=== PATIENT | female | born 1930 | race Caucasian/White ===

== ENCOUNTER → 2016-09-02 | Outpatient (CLI) | payer MEDICARE ==
[~2016-09-02] VITALS: Ht 170.2 cm; Wt 84.4 kg
[~2016-09-02] MED LIST: ASPI81TA85 PO; CALC600T10 PO; CALCTAB89 PO; FECAL MICROBIOTA PREPARATION 250 ML BTL (J3590) XX ONE; FURO40TA2 PO; GABA600T PO; LIDOCAINE 2% INJ 100 MG/5 ML SDV (FOR ANES.) As Ordered ONE; LOMOTIL 2.5MG/0.025MG TABLET PO ONE; MULT1TAB10 PO; NS 1,000 ML IV SCH; POTA20TA PO; PROA1AER INH; PROBCAP4 PO; PROPOFOL 200 MG/20 ML VIAL As Ordered ONE; SIMV40TA2 PO; TRAM50TA2 PO; VITA200016 PO
--- NOTE | 2016-09-02 13:52 | ROOR ---
Patient Name: Rupinder Vaca Procedure Date: 09/02/2016 1:21 PM Date of : 1930 Age: 86 Room: [facility] Gender: Female Note Status: Finalized Procedure: Colonoscopy Indications: Chronic diarrhea, Colitis, presumed infectious Providers: George Sanchez Jr, MD Referring MD: Galilea Barnes DO Requesting Provider: Medicines: Propofol per Anesthesia Complications: No immediate complications. Procedure: Pre-Anesthesia Assessment: - Prior to the procedure, a History and Physical was performed, and patient medications and allergies were reviewed. The patient is competent. The risks and benefits of the procedure and the sedation options and risks were discussed with the patient. All questions were answered and informed consent was obtained. Patient identification and proposed procedure were verified by the physician and the nurse in the pre-procedure area and in the procedure room. Mental Status Examination: alert and oriented. Airway Examination: normal oropharyngeal airway and neck mobility. Respiratory Examination: clear to auscultation. CV Examination: normal. ASA Grade Assessment: II - A patient with mild systemic disease. After reviewing the risks and benefits, the patient was deemed in satisfactory condition to undergo the procedure. The anesthesia plan was to use moderate sedation / analgesia (conscious sedation). Immediately prior to administration of medications, the patient was re-assessed for adequacy to receive sedatives. The heart rate, respiratory rate, oxygen saturations, blood pressure, adequacy of pulmonary ventilation, and response to care were monitored throughout the procedure. The physical status of the patient was re-assessed after the procedure. The Colonoscope was introduced through the anus and advanced to the cecum, identified by appendiceal orifice and ileocecal valve. The colonoscopy was performed without difficulty. The patient tolerated the procedure well. The quality of the bowel preparation was adequate and good. Findings: The perianal exam findings include non-thrombosed internal hemorrhoids, internal hemorrhoids that prolapse with straining, but spontaneously regress to the resting position (Grade II) and internal hemorrhoids that prolapse with straining, but require manual replacement into the anal canal (Grade III). Multiple small and large-mouthed diverticula were found in the sigmoid colon. Diffuse severe inflammation characterized by congestion (edema), erosions, erythema, friability, mucus and pseudopolyps was found in the ascending colon. Biopsies were taken with a cold forceps for histology. A medium polyp was found in the hepatic flexure. The polyp was sessile. Biopsies were taken with a cold forceps for histology. Impression: - Non-thrombosed internal hemorrhoids, internal hemorrhoids that prolapse with straining, but spontaneously regress to the resting position (Grade II) and internal hemorrhoids that prolapse with straining, but require manual replacement into the anal canal (Grade III) found on perianal exam. - Diverticulosis in the sigmoid colon. - Diffuse severe inflammation was found in the ascending colon secondary to pseudomembranous colitis. Biopsied. - One medium polyp at the hepatic flexure. Biopsied. Recommendation: - Discharge patient to home (ambulatory). - Return to my office in 2 weeks. George Sanchez MD George Sanchez Jr, MD 09/02/2016 1:51:52 PM This report has been signed electronically. Number of Addenda: 0 Note Initiated On: 09/02/2016 1:21 PM Estimated Blood Loss: Estimated blood loss: none.
[2016-09-02 14:53] VITALS: BP 131/67
== END ==
LOC: M OPP 12:16
PROVIDERS: ATTEND Surgery
DX: K52.9 Noninfective gastroenteritis and colitis, unspecified (principal); A04.7 Enterocolitis due to Clostridium difficile; C18.9 Malignant neoplasm of colon, unspecified; K64.2 Third degree hemorrhoids; K57.30 Diverticulosis of large intestine without perforation or abscess without bleeding; D12.3 Benign neoplasm of transverse colon; Z96.651 Presence of right artificial knee joint; I10 Essential (primary) hypertension; J98.4 Other disorders of lung; Z79.82 Long term (current) use of aspirin; Z79.899 Other long term (current) drug therapy

== ENCOUNTER → 2016-09-20 | Outpatient (CLI) | payer MEDICARE ==
[~2016-09-20] MED LIST changes: -FECAL MICROBIOTA PREPARATION 250 ML BTL (J3590) XX ONE; -LIDOCAINE 2% INJ 100 MG/5 ML SDV (FOR ANES.) As Ordered ONE; -LOMOTIL 2.5MG/0.025MG TABLET PO ONE; -NS 1,000 ML IV SCH; -PROPOFOL 200 MG/20 ML VIAL As Ordered ONE
[2016-09-20 14:01] LABS: MEAN CORPUSCULAR HEMOGLOBIN 20.5 pg (27.0-33.0); MEAN CORPUSCULAR HGB CONC 29.1 g/dl (32.0-36.5); MEAN CORPUSCULAR VOLUME 70.3 fl (80.0-96.0); RED CELL DISTRIBUTION WIDTH 16.6 % (11.5-14.5); WHITE BLOOD COUNT 8.8 K/mm3 (4.0-10.0)
== END ==
LOC: M LAB 12:17
PROVIDERS: ATTEND Surgery
DX: C18.9 Malignant neoplasm of colon, unspecified (principal)

== ENCOUNTER → 2016-09-22 | Outpatient (CLI) | payer MEDICARE ==
[~2016-09-22] MED LIST changes: +GASTROGRAFIN SOLUTION 30ML (Q9963) As Ordered ONE; +ISOVUE-370 76% 100ML VIAL (Q9967) As Ordered ONE
--- NOTE | 2016-09-22 14:56 | REP ---
Clinical: Neoplasm of the ascending colon. Technique: Axial contrast enhanced images from the lung bases to the pubic symphysis using oral and 100 ml Isovue 370 intravenous contrast material with coronal and sagittal re-formations. Comparison: 07/17/2015. Findings: Irregular heterogeneous asymmetric but circumferential thickening of the cecum/proximal ascending colon is appreciated with surrounding fat stranding and adenopathy compatible with given history of malignancy. The distal/terminal ileum and appendix appear relatively normal. The remainder of the small and large bowel is grossly unremarkable. Liver, pancreas, bilateral adrenal glands and left kidney appear normal. Right kidney demonstrates hypodensities compatible with cysts measuring up to 3 cm. The spleen demonstrates hypodensity up to 2.4 cm which are otherwise nonspecific and may represent hemangioma/lymphangioma and appear to be increased when compared to 2014. Gallbladder demonstrates minimal layering sludge without evidence for acute cholecystitis. A rim calcified structure in the left upper quadrant may represent a thrombosed splenic artery aneurysm, but in any event appears stable and chronic/benign. Small hiatal hernia noted at the gastroesophageal junction. No pelvic fluid or ascites. Pelvis demonstrates normal bladder and age-appropriate uterus/adnexa. Sigmoid diverticulosis noted without acute diverticulitis. Musculoskeletal structures demonstrate age-related changes without focal osseous abnormality. The lung bases demonstrate chronic changes without acute consolidation, nodule or mass. Impression: 1. Large heterogeneous asymmetric circumferential mass lesion involving the cecum and ascending colon measuring greater than 8.4 cm maximal diameter with surrounding inflammatory changes and adenopathy consistent with malignancy. 2. Colonic diverticulosis. 3. Right renal simple cysts. 4. Splenic hypodensity increased from prior examination may reflect hemangioma/lymphangioma versus splenic cyst. 5. Cholelithiasis without CT evidence for acute cholecystitis. Signed by El Garcia MD 09/22/2016 02:48 P
== END ==
LOC: M RAD 12:22
PROVIDERS: ATTEND Surgery
DX: C18.2 Malignant neoplasm of ascending colon (principal); K57.30 Diverticulosis of large intestine without perforation or abscess without bleeding; N28.1 Cyst of kidney, acquired; K80.20 Calculus of gallbladder without cholecystitis without obstruction
CPT/HCPCS: 74178; Q9963; Q9967

== ENCOUNTER → 2016-10-07 | Outpatient (CLI) | payer MEDICARE, OTHER ==
[~2016-10-07] MED LIST changes: -GASTROGRAFIN SOLUTION 30ML (Q9963) As Ordered ONE; -ISOVUE-370 76% 100ML VIAL (Q9967) As Ordered ONE
[2016-10-07 12:33] LABS: BASO % 0.3 % (0.0-1.0); EOS # 0.1 K/mm3 (0.0-0.50); LYMPH # 1.3 K/mm3 (1.5-4.5); LYMPH % 15.2 % (24.0-44.0); MEAN CORPUSCULAR HEMOGLOBIN 19.5 pg (27.0-33.0); MEAN CORPUSCULAR HGB CONC 28.4 g/dl (32.0-36.5); MEAN CORPUSCULAR VOLUME 68.8 fl (80.0-96.0); MONO # 0.4 K/mm3 (0.0-0.8); MONO % 4.7 % (0.0-5.0); NEUTROPHILS # 6.6 K/mm3 (1.8-7.7); NEUTROPHILS % 75.8 % (36.0-66.0); RED CELL DISTRIBUTION WIDTH 17.1 % (11.5-14.5); WHITE BLOOD COUNT 8.7 K/mm3 (4.0-10.0)
[2016-10-07 12:38] LABS: ANION GAP 7 MEQ/L (8-16); BLOOD UREA NITROGEN 13 MG/DL (7-18); CALCIUM LEVEL 8.4 MG/DL (8.8-10.2); CARBON DIOXIDE LEVEL 31 MEQ/L (21-32); CHLORIDE LEVEL 105 MEQ/L (98-107); GLOMERULAR FILTRATION RATE > 60.0 (>32); GLUCOSE, FASTING 93 MG/DL (83-110); POTASSIUM SERUM 3.9 MEQ/L (3.5-5.1); SODIUM LEVEL 143 MEQ/L (136-145)
--- NOTE | 2016-10-07 13:18 | REP ---
CHEST X-RAY: TWO VIEWS. HISTORY: Dorsalgia. COMPARISON STUDY: July 18, 2015. FINDINGS: The lungs are slightly hyperinflated but clear. Heart is not felt to be enlarged. The aorta is calcific and somewhat tortuous. There is a dextroconvex curvature in the thoracic spine. These findings are unchanged. Pleural angles are sharp. Pulmonary vasculature is not increased. No other significant bony abnormality is seen. IMPRESSION: Mild hyperinflation. Otherwise no acute disease. Dextroconvex curvature in the thoracic spine again noted. Signed by Trace Metz MD 10/07/2016 01:32 P
--- NOTE | 2016-10-07 13:18 | ECGEPIP ---
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 Molly NORTH Order Number: [id number] Reading MD: Eh Lenz Measurements Intervals [place] Rate: 75 P: 37 NC: 151 QRS: -62 QRSD: 145 T: 18 QT: 420 QTc: 472 Interpretive Statements SINUS RHYTHM Low voltage in limb leads RIGHT BUNDLE BRANCH BLOCK LEFT ANTERIOR FASCICULAR BLOCK Delayed anterior R wave progression Nonspecific T wave abnormality Baseline artifact Comparison tracing not on file Electronically Signed On 10-07-2016 13:08:10 EST by Eh Lenz
== END ==
LOC: M LAB 11:37
PROVIDERS: ATTEND Family Medicine
DX: M54.9 Dorsalgia, unspecified (principal)

== ENCOUNTER 2016-10-12 08:01 | Inpatient (IN) | payer MEDICARE, OTHER ==
--- NOTE | 2016-10-11 21:55 | HPE ---
DATE OF SCHEDULED ADMISSION: 10/12/2016 BRIEF HISTORY OF PRESENT ILLNESS: The patient is an 86-year-old female who presents with a CT scan which showed abnormality in the right colon, and she had some evidence of Clostridium difficile (C difficile) colitis a year ago and was treated for the C difficile colitis. The CT scan did not show evidence of malignancy at that time. However, since that time, she has had ongoing intermittent episodes of C difficile colitis and presented for stool transplant. At the time of her stool transplant, she had some ulcerated lesion abnormality in the ascending colon/near the cecum, and this was biopsied, revealed adenocarcinoma. A CT scan was performed once again as dictated and did not show any evidence of metastatic disease. She has had some left-sided abdominal pain but not specifically right-sided abdominal pain, has had some anemia. She is not having any bright red blood per rectum. Her past medical history is significant for a history of hypertension, hypercholesterolemia, history of gastroesophageal reflux, history of colitis, history of arthritis, history of anxiety, history of depression, history of chronic obstructive pulmonary disease (COPD), history of C difficile infections, history of knee replacement. Medications include aspirin, calcium, Lasix, gabapentin, multivitamins, ProAir, probiotics, simvastatin, tramadol and vitamin D. PHYSICAL EXAM: Reveals an 86-year-old female who looks stated age. HEENT is unremarkable. Neck: Supple without adenopathy. Lungs are clear to auscultation without crackles, wheezes or rhonchi. Heart is regular. Abdomen is soft, nondistended. I do feel there is a fullness in the right side of the abdomen, and I do feel that this is probably the malignancy. She does have a small periumbilical hernia, and I anticipate when we perform her laparoscopic approach that will use this hernia site. No other masses or lesions are appreciated on her exam. No other tenderness. No guarding, no rebound. IMPRESSION AND PLAN: The patient has evidence of a malignant neoplasm of the ascending colon. Will plan on a laparoscopic right colectomy. The lesion itself is relatively large, and I anticipate this will probably need to have a relatively moderate-sized periumbilical incision, and I am not sure if this will be able to be mobilized adequately laparoscopically, but this will be that plan. She understands that we will make her nothing by mouth, IV fluids, IV antibiotics, as well as mechanical, as well as antibiotic bowel prep. She will get thromboembolism deterrents (TEDS), sequential, Joseph catheter intraoperatively and we have discussed the operative intervention and its risks as well as benefits associated with the operation, including but not limited to infection, bleeding, damage to surrounding structures, including liver, pancreas, duodenum, kidney, ureter, bladder, bowel and possible need for open operative intervention as well as possible need for ostomy. She understands and would like to proceed with this as soon as possible. Second issue is anemia. The patient has had some ongoing anemia. Will type and cross her at the time of her operation and plan on transfusing her intraoperatively as per recommendations from her primary care.
[~2016-10-12] VITALS: Ht 170.2 cm; Wt 83.0 kg
[2016-10-12] MEDS ORDERED: LR 1,000 ML IV SCH ×3 (08:15→16:15)
[2016-10-12] MEDS: PANTOPRAZOLE 40MG INJ (PROTONIX) (C9113) IV SCH (09:00)
[2016-10-12] MEDS ORDERED: ERTAPENEM SODIUM 1 GM in NS MINI-BAG PLUS 50 ML IV ONE (09:00)
[2016-10-12] MEDS ORDERED: GLUCAGON FOR INJ 1 MG VIAL (J1610) As Ordered ONE (10:45)
[2016-10-12] MEDS ORDERED: BUPIVACAINE/EPIN 0.25% 30 ML VIAL As Ordered ONE (10:45)
[2016-10-12] MEDS ORDERED: MIDAZOLAM INJ 2 MG/2 ML VIAL (J2250) As Ordered ONE (11:18)
[2016-10-12] MEDS ORDERED: PROPOFOL 200 MG/20 ML VIAL As Ordered ONE (13:17)
[2016-10-12] MEDS ORDERED: fentaNYL 250 MCG/5 ML INJECTION (J3010) As Ordered ONE (13:17)
[2016-10-12] MEDS ORDERED: ONDANSETRON 4MG/2ML VIAL (J2405) As Ordered ONE (13:17)
[2016-10-12] MEDS ORDERED: LIDOCAINE 2% INJ 100 MG/5 ML SDV (FOR ANES.) As Ordered ONE (13:17)
[2016-10-12] MEDS ORDERED: ROCURONIUM BROMIDE 50 MG/5 ML VIAL As Ordered ONE (13:17)
[2016-10-12] MEDS ORDERED: LABETALOL HCL 100 MG/20 ML VIAL As Ordered ONE (13:39)
[2016-10-12] MEDS ORDERED: HYDROmorphone HCL 2 MG/ML 1ML VIAL (J1170) As Ordered ONE (14:11)
[2016-10-12] MEDS ORDERED: NEOSTIGMINE 1MG/ML 5 ML SYRINGE (J2710) As Ordered ONE (14:37)
[2016-10-12] MEDS ORDERED: GLYCOPYRROLATE INJ 0.2 MG/ML 2 ML VIAL As Ordered ONE (14:37)
[2016-10-12] MEDS ORDERED: NS 1,000 ML IV SCH ×2 (15:12→23:00)
[2016-10-12] MEDS ORDERED: NALOXONE INJ 0.4 MG/1 ML VIAL (J2310) IV PRN (15:15)
[2016-10-12] MEDS ORDERED: MORPHINE PCA 1MG/ML 100ML CADD IV PRN (15:15)
[2016-10-12] MEDS ORDERED: zolPIDEM TARTRATE 10MG TAB PO PRN (15:15)
[2016-10-12] MEDS ORDERED: diphenhydrAMINE INJ 50MG/ML VIAL (J1200) IV PRN (15:15)
[2016-10-12] MEDS ORDERED: MORPHINE PCA 1MG/ML 100ML CADD As Ordered ONE (15:15)
[2016-10-12] MEDS ORDERED: IPRATROPIUM 0.5MG/ALBUTEROL 2.5MG INH SOL UD 3ML (DUONEB)(J7620) NEB PRN (15:15)
[2016-10-12] MEDS ORDERED: ONDANSETRON 4MG/2ML VIAL (J2405) IV PRN ×3 (15:15→16:15)
[2016-10-12] MEDS ORDERED: NALBUPHINE HCL 10 MG/ML AMP (J2300) IV PRN (15:15)
[2016-10-12] MEDS ORDERED: EPIDURAL/PCA KEYS XX PRN (15:15)
[2016-10-12] MEDS: HYDROmorphone HCL 1 MG/ML SYRINGE (J1170) IV PRN ×4 (15:45→16:15)
[2016-10-12] MEDS ORDERED: HYDROmorphone HCL 1 MG/ML SYRINGE (J1170) As Ordered ONE (15:45)
[2016-10-12] MEDS ORDERED: PERCOCET 5MG/325MG TAB PO PRN (16:15)
[2016-10-12] MEDS ORDERED: fentaNYL 100 MCG/2 ML INJECTION (J3010) IV PRN (16:15)
[2016-10-12 16:35] LABS: ANION GAP 8 MEQ/L (8-16); BLOOD UREA NITROGEN 12 MG/DL (7-18); CALCIUM LEVEL 7.4 MG/DL (8.8-10.2); CARBON DIOXIDE LEVEL 28 MEQ/L (21-32); CHLORIDE LEVEL 105 MEQ/L (98-107); CREATININE FOR GFR 0.62 MG/DL (0.55-1.02); GLOMERULAR FILTRATION RATE > 60.0 (>32); GLUCOSE, FASTING 134 MG/DL (83-110); POTASSIUM SERUM 3.5 MEQ/L (3.5-5.1); SODIUM LEVEL 141 MEQ/L (136-145)
[2016-10-12 17:30] VITALS: BP 131/65
[2016-10-12 18:00] VITALS: BP 145/74
[2016-10-12] MEDS: LACTOBACILLUS ACIDOPHILUS CAP (BACID) PO SCH ×2 (18:10→19:59)
[2016-10-12] MEDS: GABAPENTIN 300 MG CAP PO SCH ×2 (18:11→20:00)
[2016-10-12 18:30] VITALS: BP 154/77
--- NOTE | 2016-10-12 19:41 | REP ---
CHEST, SINGLE VIEW: COMPARISON: 10/07/2016 There is no evidence of acute infiltrate. No pleural effusion is seen. The heart is normal in size. The mediastinal silhouette is unremarkable. The visualized osseous structures are intact. IMPRESSION: No acute pulmonary disease. Signed by Francisco Casanova MD 10/12/2016 08:13 P
--- NOTE | 2016-10-12 19:58 | CR ---
DATE OF CONSULTATION: 10/13/2015 TIME PATIENT SEEN: 1830 CONSULTING PHYSICIAN: Dr. Sanchez INTERIOR HORTICULTURIST: Dr. Mile Lopez REASON FOR CONSULTATION: Medical management. CHIEF COMPLAINT: Colon cancer. HISTORY OF PRESENT ILLNESS: An 86-year-old female with a past medical history of colon cancer, status post laparoscopic right colectomy with Dr. Sanchez earlier today. Also history of hypertension, gastroesophageal reflux disease (GERD), arthritis, anxiety, depression, chronic obstructive pulmonary disease (COPD), presented to the hospital for elective surgery with Dr. Sanchez, and we have been consulted for medical management. At the time of interview, patient's daughter and son-in-law were in the room. Provided some of the history. Patient, herself, however, was slightly confused due to coming out from the surgery. Patient's daughter stated that Dr. Sanchez stated the surgery went well. Patient denies any discomfort besides a back pain, which, per patient's family, has been chronic for her. She also has mild abdominal pain from the surgery. Otherwise, she denies any chest pain, trouble breathing, any abdominal pains, nausea, vomiting, diarrhea, or constipation. Patient is on a Joseph currently. Patient denies any flatus currently. Patient is on Lasix at home, which was a concern due to that she received 2 units of packed red blood cells (PRBC) in operating room (OR); however, patient's family denied that patient has had any heart failure. She does see Dr. Vega, cardiology, outpatient. We will obtain her history from Dr. Vega from the office, likely next day morning. In the meantime, we will monitor her closely. ALLERGIES: Patient is allergic to CEFEPIME, which gives her hives. HOME MEDICATIONS: Include: - ProAir 108 mcg inhalation four times a day as needed - aspirin 81 mg one tablet by mouth daily - calcium 1200 mg one tablet by mouth daily - furosemide 40 mg one tablet by mouth daily - gabapentin 600 mg one tablet by mouth four times a day - probiotic one tablet by mouth daily - multivitamin two tablets by mouth daily - potassium chloride 10 mEq by mouth daily - simvastatin 20 mg one tablet by mouth daily - tramadol 50 mg one tablet by mouth every 6 hours - vitamin D 2000 units one tablet by mouth daily PAST MEDICAL HISTORY: 1. Hypertension. 2. Gastroesophageal reflux disease (GERD). 3. Colitis. 4. Arthritis. 5. Anxiety/depression. 6. Chronic obstructive pulmonary disease (COPD). 7. Osteoporosis. 8. Degenerative joint disease. 9. Echocardiogram in [address] Vega shows left ventricular ejection fraction of 65-70%, questionable diastolic due to patient is on Lasix, pending history from Dr. Vega's office. PAST SURGICAL HISTORY: Right total knee replacement. SOCIAL HISTORY: Patient quit smoking 10 years ago. Used to smoke half pack per day for over 5 years. Denies any drinking or recreational drug use. Patient is retired and . FAMILY HISTORY: Significant for congestive heart failure (CHF), asthma, coronary artery disease, cerebrovascular accident (CVA), lung cancer, breast cancer, cirrhosis. REVIEW OF SYSTEMS: CONSTITUTIONAL: Denies any fevers or chills, any night sweats. HEENT: Denies any changes with vision, smell, hearing, taste. CARDIOVASCULAR: Denies any chest pain, trouble breathing. PULMONARY: Denies any trouble breathing. ABDOMEN: Admits to colon cancer. Denies any nausea, vomiting, diarrhea, or constipation. Patient has not passed any flatus since surgery today. GENITOURINARY: Patient has Joseph catheter. Denies any discomfort currently. MUSCULOSKELETAL: Patient does have chronic back pain. ENDOCRINE: Denies any heat or cold intolerance. HEMATOLOGY/ONCOLOGY: Patient does have colon cancer status post resection. NEUROLOGIC: Denies any weakness on any side of her body. Denies any change in sensation. PSYCHIATRIC: Patient does have a history of anxiety/depression; however, it was remote per family, and they deny patient has any problem currently. PHYSICAL EXAMINATION: VITAL SIGNS: Temperature 95.5, pulse 77, respirations 18, blood pressure 131/65, oxygen was saturating at 96% on 2 liters of nasal cannula. GENERAL: Patient is a pleasant, elderly female who was alert, awake, oriented times three. Does not appear to be in distress, resting comfortably in bed with head elevated at 30 degrees. HEENT: Normocephalic, atraumatic. Extraocular motor intact. Mucosa moist. NECK: Supple. No neck lymphadenopathy. CARDIOVASCULAR: Regular rate and rhythm. Normal S1, S2; however, there was a 3/6 systolic heart murmur, especially at right 2nd intercostal space. LUNGS: Slight rales, more prominent on the left side. ABDOMEN: Slightly tender to palpation near the surgical site; otherwise, incision was dry, clean, and intact. SKIN: Warm and dry. NEUROLOGIC: Cranial nerves II-XII intact. No focal neurologic deficit. LABORATORY DATA: Only lab done was this afternoon at 3:51. Showed sodium 141, potassium 3.5, chloride 105, bicarbonate 28, BUN 12, creatinine 0.62, GFR greater than 60, fasting glucose 134, calcium 7.4. Portable chest x-ray has been ordered. Result pending. Will followup. CURRENT MEDICATIONS: - Ambien 2.5 mg one tablet by mouth at bedtime - Bacid one tablet by mouth before meals and at bedtime - gabapentin 600 mg one tablet by mouth four times a day - ertapenem 1 gram every 24 hours IV - DuoNeb treatment four times a day - Reglan 10 mg every 6 hours as needed - Phenergan 12.5 mg IV every 6 hours as needed - DuoNeb treatment every 2 hours as needed - morphine sulfate as directed as needed - Nubain 2.5 mg IV every 6 hours as needed - Benadryl 12.5 mg IV every 4 hours as needed - Zofran 4 mg IV every 6 hours as needed - Narcan 0.1 mg IV every 5 minutes as needed - Protonix 40 mg IV daily ASSESSMENT AND PLAN: An 86-year-old female with past medical history of colon cancer, hypertension, hyperlipidemia, colitis, arthritis, anxiety, depression, osteoporosis, degenerative joint disease, and questionable congestive heart failure (CHF), who presented with: 1. Colon cancer, status post laparoscopic right colectomy with Dr. Sanchez today. Continue pain management and diet per general surgery recommendation. 2. Questionable CHF. Patient is on Lasix at home; however, family and patient herself deny that she has CHF. Her medical record does show that she has echocardiogram with Dr. Vega in 2011 that showed left ventricular ejection fraction of 65-70%. Dr. Sanchez has concern for possible exacerbation of CHF due to patient received 2 units of packed red blood cells (PRBC) during the surgery. The patient also does have slight rales from the lungs. Will obtain a stat portable chest x-ray to rule out possible pulmonary edema; otherwise, will hold any IV fluid for tonight. Will reassess in the morning. 3. History of anemia, likely secondary to colon cancer, which has been repleted in operating room (OR). Will obtain a complete blood count (CBC) tomorrow morning. 4. History of chronic obstructive pulmonary disease (COPD). Continue DuoNeb treatment and continue to monitor. 5. Hyperlipidemia. Continue home medication. Patient is nothing by mouth currently. 6. Hypertension. Patient's blood pressure is stable at 131 currently. Will hold off on any blood pressure medication for now, including Lasix, and continue to monitor patient. Will restart as needed. 7. Deep vein thrombosis (DVT) prophylaxis, on sequential compression devices (SCD) due to postoperative day #0. DISPOSITION: We have been consulted for medical management. Will obtain medical record from Dr. Vega's office regarding possible CHF and will hold patient's Lasix for now and will also hold off giving patient any IV fluid for now and will reassess her in the morning. Will followup with chest x-ray to rule out any pulmonary edema. Patient has been discussed with attending doctor. Dr. Lopez. My preceptor for this patient encounter was Dr. Mile Lopez. The preceptor was physically present in the building during the encounter and was fully available as needed. All aspects of the patient interview, examination, medical decision making process, and medical care plan development were reviewed and approved by the preceptor. The preceptor is aware and concurs with the plan as stated in the body of this note and will attest to such by his/her co-signature. I, Mile Lopez, have seen and examined the above patient and agree with the assessment and plan as documented above. NORBERT
[2016-10-12] MEDS: ERTAPENEM SODIUM 1 GM in NS MINI-BAG PLUS 50 ML IV SCH (19:59)
[2016-10-12 20:00] VITALS: BP 119/67
[2016-10-12] MEDS: zolPIDEM TARTRATE 5 MG TAB PO SCH (20:00)
[2016-10-12] MEDS: IPRATROPIUM 0.5MG/ALBUTEROL 2.5MG INH SOL UD 3ML (DUONEB)(J7620) NEB SCH (20:10)
[2016-10-12 21:30] VITALS: BP 131/65
[2016-10-12 22:30] VITALS: BP 129/91
[2016-10-13] VITALS (10 sets, daily range): BP systolic 123–149; BP diastolic 65–80
[2016-10-13 07:02] LABS: MEAN CORPUSCULAR HEMOGLOBIN 21.7 pg (27.0-33.0); MEAN CORPUSCULAR HGB CONC 30.3 g/dl (32.0-36.5); MEAN CORPUSCULAR VOLUME 71.7 fl (80.0-96.0); RED CELL DISTRIBUTION WIDTH 19.9 % (11.5-14.5); WHITE BLOOD COUNT 6.8 K/mm3 (4.0-10.0)
[2016-10-13 07:20] LABS: ANION GAP 5 MEQ/L (8-16); BLOOD UREA NITROGEN 8 MG/DL (7-18); CALCIUM LEVEL 7.4 MG/DL (8.8-10.2); CARBON DIOXIDE LEVEL 31 MEQ/L (21-32); CHLORIDE LEVEL 106 MEQ/L (98-107); CREATININE FOR GFR 0.56 MG/DL (0.55-1.02); GLOMERULAR FILTRATION RATE > 60.0 (>32); GLUCOSE, FASTING 89 MG/DL (83-110); POTASSIUM SERUM 3.3 MEQ/L (3.5-5.1); SODIUM LEVEL 142 MEQ/L (136-145)
[2016-10-13] MEDS: IPRATROPIUM 0.5MG/ALBUTEROL 2.5MG INH SOL UD 3ML (DUONEB)(J7620) NEB SCH ×4 (07:44→19:42)
[2016-10-13 07:53] LABS: MAGNESIUM LEVEL 2.4 MG/DL (1.8-2.4)
--- NOTE | 2016-10-13 08:21 | REP ---
Portable chest x-ray: Single view. History: Shortness of breath. Comparison study October 12, 2016. Findings: The lungs are symmetrically aerated and free of infiltrate. Heart size is borderline. The aorta is calcific and somewhat tortuous. Pulmonary vasculature is not increased. Pleural angles are sharp. Impression: No acute disease. Signed by Trace Metz MD 10/13/2016 12:24 P
[2016-10-13] MEDS: KCL 20MEQ in NS 1000ML 1,000 ML IV SCH (08:26)
[2016-10-13] MEDS: KCL 10MEQ IN 100ML SWI (KRUN) 10 MEQ in APPROPRIATE DILUENT 1 EA IV SCH ×6 (08:26→14:52)
[2016-10-13] MEDS: GABAPENTIN 300 MG CAP PO SCH ×4 (08:26→20:35)
[2016-10-13] MEDS: LACTOBACILLUS ACIDOPHILUS CAP (BACID) PO SCH ×4 (08:26→20:36)
[2016-10-13] MEDS: PANTOPRAZOLE 40MG INJ (PROTONIX) (C9113) IV SCH (08:27)
[2016-10-13] MEDS ORDERED: MORPHINE PCA 1MG/ML 100ML CADD IV PRN (09:00)
[2016-10-13] MEDS ORDERED: ISOVUE-370 76% 100ML VIAL (Q9967) As Ordered ONE (13:35)
--- NOTE | 2016-10-13 14:04 | IPN ---
DATE OF SERVICE: 10/13/2016 TIME THE PATIENT WAS SEEN: Was this morning around 10:30. The patient has been seen and examined at bedside. No acute events overnight. The patient admits to increased pain level this morning. However, at the time of interview, the pain has improved with addition of narcotics. Otherwise, the patient denies any chest pain, trouble breathing, any abdominal pains, nausea, vomiting, diarrhea, or constipation. The patient has not passed any flatus yet. Denies any discomfort anywhere else. PHYSICAL EXAMINATION: VITAL SIGNS: Temperature was 98, pulse 80, respiration 18, blood pressure 149/72, oxygen was saturating at 97% on 2 liters of nasal cannula. GENERAL: The patient is a pleasant elderly female who was alert, awake, oriented times three. Does not appear to be in distress. Resting comfortably in bed with head elevated at 45-degree angle. HEENT: Normocephalic, atraumatic. Extraocular motor intact. Mucosa moist. NECK: Supple. No neck lymphadenopathy. CARDIOVASCULAR: Regular rate and rhythm. S1, S2. 3/6 systolic heart murmur at the right 2nd intercostal space. LUNGS: Clear to auscultate bilaterally. No wheezes, rales, or rhonchi. ABDOMEN: Positive bowel sounds. Soft, mildly tender to palpation around the incision site; otherwise, no peritoneal signs, no ecchymosis. Incision was also dry, clean, and intact. SKIN: Warm and dry. NEUROLOGIC: Cranial nerves II-XII intact. No focal neurologic deficit. LABORATORIES: WBC 6.8, hemoglobin 10.5, hematocrit 34.6, platelet count of 312, MCV of 71.7. Sodium 142, potassium 3.3, chloride 106, bicarbonate 31, BUN 8, creatinine 0.56, GFR greater than 60%, fasting glucose 89, calcium 7.4, magnesium 2.4, BNP was 63.5. The patient's pathology result is pending. The patient had a new portable chest x-ray this morning. It shows no acute disease. ASSESSMENT AND PLAN: An 86-year-old female with a past medical history of colon cancer, hypertension, hyperlipidemia, colitis, arthritis, anxiety, depression, osteoporosis, degenerative joint disease, questionable congestive heart failure (CHF), who presented with: 1. Colon cancer, status post laparoscopic right colectomy with Dr. Sanchez. Postoperative day (POD) #1. Continue pain management and diet per general surgery recommendation. Will continue to follow. 2. Questionable congestive heart failure (CHF). The patient was on Lasix at home. Will hold the Lasix for now due to right after surgery. The patient did have a chest x-ray yesterday and this morning. Both were clear. Will obtain medical record from Dr. Vega's office regarding the patient's cardiac status. Will need to find out if the patient does have CHF or not. At this point, brain natriuretic peptide (BNP) was not elevated. Will start the patient on maintenance intravenous (IV) fluids with K 20 normal saline at a rate of 60 mL per hour and continue to monitor the patient. 3. Microcytic anemia, likely secondary to colon cancer and blood loss from surgery, possibly. The patient was status post 2 units of packed red blood cells during surgery. Will order an iron panel and will supplement as needed. 4. History of chronic obstructive pulmonary disease (COPD). Continue DuoNeb treatment. 5. Hyperlipidemia. Continue home medication. The patient is nothing by mouth currently. 6. Hypertension. Blood pressure is currently stable. Continue to monitor. Continue to hold Lasix. Will adjust the blood pressure medication as needed. 7. Fibrotic lung noticed on chest x-ray. A CT chest has been ordered and will followup. 8. Deep vein thrombosis (DVT) prophylaxis. On sequential compression devices (SCD). DISPOSITION: We have been consulted for medical management. Will continue to follow with general surgery and will obtain record from Dr. Vega's office regarding possible CHF. Will obtain a CT of the chest due to fibrotic findings on the chest x-ray. The patient has been discussed with attending doctor, Dr. Jade. My preceptor for this patient encounter was Dr. Rakan Jade. The preceptor was physically present in the building during the encounter and was fully available as needed. All aspects of the patient interview, examination, medical decision making process, and medical care plan development were reviewed and approved by the preceptor. The preceptor is aware and concurs with the plan as stated in the body of this note and will attest to such by his/her co-signature.
[2016-10-13] MEDS: ERTAPENEM SODIUM 1 GM in NS MINI-BAG PLUS 50 ML IV SCH (17:26)
--- NOTE | 2016-10-13 18:27 | REP ---
CT CHEST WITH IV CONTRAST: CT chest is performed with the intravenous administration of 100 mL Isovue-370. Sagittal and coronal reconstruction images are performed. Diffuse fibrotic changes are seen in the lungs. No suspicious nodular opacity is seen. No suspicious adenopathy is seen. There is no plural or pericardial effusion. There is a small to moderate sized hiatal hernia. There is no thoracic aortic aneurysm. There is mild cardiomegaly. There is mild air and fluid in the upper abdomen status-post surgical procedure recently. 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 There are cysts in the upper pole of the right kidney. IMPRESSION: No suspicious mass or adenopathy in the chest. Signed by Francisco Casanova MD 10/14/2016 04:39 P
[2016-10-13] MEDS: zolPIDEM TARTRATE 5 MG TAB PO SCH (20:35)
[2016-10-14 02:00] VITALS: BP 138/73
[2016-10-14] MEDS: KCL 20MEQ in NS 1000ML 1,000 ML IV SCH (05:38)
[2016-10-14 06:00] VITALS: BP 153/78
[2016-10-14 07:22] LABS: MEAN CORPUSCULAR HEMOGLOBIN 21.4 pg (27.0-33.0); MEAN CORPUSCULAR HGB CONC 29.6 g/dl (32.0-36.5); MEAN CORPUSCULAR VOLUME 72.3 fl (80.0-96.0); RED CELL DISTRIBUTION WIDTH 19.3 % (11.5-14.5); WHITE BLOOD COUNT 7.8 K/mm3 (4.0-10.0)
[2016-10-14 07:37] LABS: ALBUMIN 2.2 GM/DL (3.2-5.2); ALBUMIN/GLOBULIN RATIO 0.76 (1.00-1.93); ALKALINE PHOSPHATASE 64 U/L (45-117); ALT/SGPT 7 U/L (12-78); ANION GAP 8 MEQ/L (8-16); AST/SGOT 16 U/L (15-37); BILIRUBIN,DIRECT 0.2 MG/DL (0.0-0.2); BILIRUBIN,TOTAL 0.4 MG/DL (0.2-1.0); BLOOD UREA NITROGEN 7 MG/DL (7-18); CALCIUM LEVEL 7.6 MG/DL (8.8-10.2); CARBON DIOXIDE LEVEL 29 MEQ/L (21-32); CHLORIDE LEVEL 108 MEQ/L (98-107); CREATININE FOR GFR 0.52 MG/DL (0.55-1.02); FERRITIN 29 NG/ML (8-252); GLOMERULAR FILTRATION RATE > 60.0 (>32); GLUCOSE, FASTING 84 MG/DL (83-110); PERCENT SATURATION 4.8 % (13.2-37.4); POTASSIUM SERUM 4.4 MEQ/L (3.5-5.1); SODIUM LEVEL 145 MEQ/L (136-145); TOTAL IRON BINDING CAPACITY 228 UG/DL (250-450); TOTAL PROTEIN 5.1 GM/DL (6.4-8.2)
[2016-10-14] MEDS: IPRATROPIUM 0.5MG/ALBUTEROL 2.5MG INH SOL UD 3ML (DUONEB)(J7620) NEB SCH ×4 (07:43→20:08)
[2016-10-14] MEDS: GABAPENTIN 300 MG CAP PO SCH ×4 (09:53→20:50)
[2016-10-14] MEDS: LACTOBACILLUS ACIDOPHILUS CAP (BACID) PO SCH ×4 (09:53→20:49)
[2016-10-14] MEDS: PANTOPRAZOLE 40MG INJ (PROTONIX) (C9113) IV SCH (09:54)
[2016-10-14 10:00] VITALS: BP 132/74
--- NOTE | 2016-10-14 10:33 | RO ---
DATE OF PROCEDURE: 10/12/2016 PREOPERATIVE DIAGNOSIS: Right ascending colon/right colon cancer. POSTOPERATIVE DIAGNOSIS: Right ascending colon/right colon cancer. PROCEDURE: Laparoscopic-assisted right colectomy. SURGEON: Dr. George Sanchez [employer] PSYCHIATRIST: Dr. Carballo (Dr. Owen provided retraction, exposure, assistance with the anastomosis. ANESTHESIA: General endotracheal anesthesia. ESTIMATED BLOOD LOSS (EBL): Minimal. FLUIDS: Crystalloid. DESCRIPTION OF PROCEDURE: The patient was brought to the operating room and was given general anesthesia. After adequate anesthesia and preoperative antibiotics were given, the patient was prepped and draped in usual sterile fashion. Next, a supraumbilical incision was made with skin knife. Blunt dissection was carried down to fascia. Fascia was grasped with Amada clamps, elevated and a Veress needle placed into the abdominal cavity and insufflated to 15 mm of pressure. A dilating 5 mm trocar was placed at the umbilicus and under direct visualization a 10 mm trocar was placed inferior to the umbilicus along the midline and a superior left upper quadrant 5 mm trocar was placed. An additional left lower quadrant 5 mm trocar was required to help with retraction. Eventually, the right colon/cecum was all packed up into the hepatic flexure area and the terminal ileum was mobilized off the lateral abdominal wall using the Harmonic scalpel taking the dissection along the mesentery up towards the cecum. This was performed with the Harmonic scalpel. This continued up to the superior aspect and at the hepatic flexure, however, because of the bulk of the tumor itself then starting from medial going to lateral was required to get around and mobilize this hepatic flexure. The omentum was mobilized off the transverse colon in this area and avascular plane was obtained and eventually this was dissected all the way up to the right colon. Once the hepatic flexure was mobilized off the surrounding tissue, there was a great deal of desmoplastic reaction and chronic inflammatory changes in this area that were eventually able to be transected and to mobilize the cecum/ileal in the right colon. Once this was able to be nicely mobilized, dissection continued across the transverse colon back towards the falciform ligament where the omentum was gradually taken off all this area as well to allow for the transverse colon to come down to the terminal ileum. The duodenum was well visualized. However, there was still some thickened tissue anterior to this and because of this it was somewhat difficult to mobilize adequately on the posterior aspect. And my concern was that there was going be the ileocolic coming up in this area. Thus, the dissection continued from lateral to medial and once this continued adequately, I was able to find the duodenum from the inferior and work myself up and then to where the additional attachments were in the hepatic flexure area. Next, given that the bowel was nicely mobilized adequately at this time, the midline incision was made to allow for this tumor be removed, first starting out with a relatively small incision, but because of the bulk of the tumor itself the incision needed be increased. Once this was increased adequately, the tumor was brought out of the abdomen and then I was able to further develop a plane where the duodenum was given the laxity of the abdominal wall as well as the incision size with the Harmonic scalpel in this area. Once this was developed nicely, the terminal ileum was transected using a ERNIE stapler. The transverse colon was transected using a ERNIE stapler and then the mesentery was partially taken with the Harmonic scalpel, and specifically, the ileocolic vessel was taken with a stapler. There was some minimal oozing along the staple line that was controlled with some hemoclips, but no active bleeding was appreciated and this settled down quite nicely after the clips were placed. No additional bleeding was appreciated. Bowel was removed in its entirety and then a [id number] anastomosis with a ERNIE 75 blue load was created. Given there was some minimal oozing from the staple lines at the end, the internal staple line was evaluated and revealed no active feeding. The enterotomy site was closed with a ERNIE stapler and the crotch of the anastomosis was brought together with #3-0 Vicryl. #3-0 Vicryl was used to imbricate the anterior surface of the anastomosis. This was returned to the abdominal cavity and the abdomen was copiously irrigated until clear. The, the gown and gloves was changed and a separate closure set was used to close the abdomen using #1 Vicryl in a running manner and debby used to approximate the skin after irrigating the subcutaneous tissue. Dry sterile dressing was applied. The patient was awakened, extubated, brought to recovery room awake, alert and hemodynamically stable. Sponge and needle counts correct times two.
--- NOTE | 2016-10-14 12:29 | IPN ---
DATE: 10/14/2016 TIME THE PATIENT WAS SEEN: 10:30. The patient was seen and examined at bedside. No acute events overnight. The patient feels better today. Stated that the pain has improved. However, patient has not passed any flatus. Denies any chest pain, trouble breathing. Denies any problem with urination. Patient has been out of bed to chair today. Denies any other current new complaints. PHYSICAL EXAMINATION: VITAL SIGNS: Temperature was 98.4, pulse 89, respiration 18, blood pressure 133/78, oxygen was saturating at 97% on 1 liter of nasal cannula. GENERAL: The patient is a pleasant, obese, elderly female who was alert, awake, oriented times three. Does not appear to be in distress. Sitting up comfortably in her recliner with head elevated at 60-degrees. HEENT: Normocephalic, atraumatic. Extraocular motor intact. Mucosa moist. NECK: Supple. No neck lymphadenopathy. CARDIOVASCULAR: Regular rate and rhythm. S1, S2. 2/6 systolic heart murmur. LUNGS: Slight rales in the right lower quadrant. Otherwise clear to auscultate. ABDOMEN: Slightly tender to palpation around the incision site, otherwise incision was clean, dry and intact. No peritoneal signs. No ecchymosis. EXTREMITIES: No edema, clubbing or cyanosis. SKIN: Warm and dry. NEUROLOGIC: Cranial nerves II-XII intact. No focal neurologic deficit. LABORATORIES: WBC 7.8, hemoglobin 10.5, hematocrit 35.6, with platelet count of 319 and MCV of 72.3. Sodium 145, potassium 4.4, chloride 108, bicarbonate 29, BUN 7, creatinine 0.52, GFR greater than 60, fasting glucose 84, calcium 7.6, iron 11, total iron binding capacity 228, transferrin percentage 4.8%. Total bilirubin 0.4, direct 0.2, AST 16, ALT 7, alkaline phosphatase 64. BNP yesterday was 63. Total protein 5.1. Albumin 2.2. No cultures. No new imaging. The patient did have a CT of chest yesterday with contrast that shows no suspicious mass or adenopathy of the chest. ASSESSMENT AND PLAN: 86-year-old female with a past medical history of colon cancer, hypertension, hyperlipidemia, colitis, arthritis, anxiety, depression, osteoporosis, degenerative joint disease, questionable congestive heart failure (CHF), who presented with: 1. Colon cancer, status post laparoscopic right colectomy with Dr. Sanchez. Postoperative day (POD) #2. Continue pain management and diet management per general surgery. Will continue to follow. Patient still has a Joseph. Will continue to monitor and remove the Joseph once agreed with general surgery. 2. Questionable heart failure (CHF). The patient was on Lasix at home. The patient does have slight rales in the right lower quadrant. However, the patient is nothing by mouth (n.p.o.), will continue gentle hydration. 3. Hypokalemia. The patient was initially on K 20 normal saline at a rate of 60 mL per hour. The patient's hypokalemia has resolved this morning. Potassium continued to elevate, therefore, will discontinue the potassium and start patient on normal saline at a rate of 50 mL/hr. 4. Microcytic anemia, likely secondary to iron deficiency, possibly related with colon cancer and GI blood loss. The patient has severe iron deficiency with percentage saturation around 5.9%. However, due to patient just received 2 units of packed red blood cells, will hold off on any iron infusion at the moment. Will wait for two days and then start patient on iron infusion. 5. History of chronic obstructive pulmonary disease (COPD). Continue DuoNeb treatment. 6. Hyperlipidemia. Continue home medication. 7. Hypertension. Currently stable. Continue to hold Lasix. 8. Fibrotic lung noticed on chest x-ray. CT was ordered and did not show any acute findings. No cancer was found on the CT of chest. 9. Deep vein thrombosis (DVT) prophylaxis. On sequential compression devices (SCD). DISPOSITION: We will continue to follow with general surgery and monitor patient's respiratory status closely and will adjust fluid as needed. The patient has been discussed with attending doctor, Dr. Jade. My preceptor for this patient encounter was Dr. Rakan Jade. The preceptor was physically present in the building during the encounter and was fully available as needed. All aspects of the patient interview, examination, medical decision making process, and medical care plan development were reviewed and approved by the preceptor. The preceptor is aware and concurs with the plan as stated in the body of this note and will attest to such by his/her co-signature.
--- NOTE | 2016-10-14 12:37 | REP ---
Chest one-view HISTORY: Abnormal lung sounds Comparison: 10/13/2016 Patchy density is present in the left upper lobe consistent with atelectasis or infiltrate. The right lung is clear. . The heart is normal in size. The pulmonary vasculature is normal in appearance. Impression: Right upper lobe atelectasis or infiltrate. Signed by Evaristo Shook MD 10/14/2016 12:28 P
[2016-10-14] MEDS: NS 1,000 ML IV SCH (12:39)
[2016-10-14 14:00] VITALS: BP 128/66
[2016-10-14 18:00] VITALS: BP 109/64
[2016-10-14] MEDS: zolPIDEM TARTRATE 5 MG TAB PO SCH (20:49)
[2016-10-14 22:00] VITALS: BP 120/54
[2016-10-15 02:00] VITALS: BP 131/69
[2016-10-15 06:00] VITALS: BP 133/69
[2016-10-15 06:36] LABS: MEAN CORPUSCULAR HEMOGLOBIN 21.6 pg (27.0-33.0)
[2016-10-15 06:54] LABS: ANION GAP 9 MEQ/L (8-16); BLOOD UREA NITROGEN 9 MG/DL (7-18); CALCIUM LEVEL 7.5 MG/DL (8.8-10.2); CARBON DIOXIDE LEVEL 27 MEQ/L (21-32); CHLORIDE LEVEL 108 MEQ/L (98-107); CREATININE FOR GFR 0.41 MG/DL (0.55-1.02); GLOMERULAR FILTRATION RATE > 60.0 (>32); GLUCOSE, FASTING 78 MG/DL (83-110); POTASSIUM SERUM 4.4 MEQ/L (3.5-5.1); SODIUM LEVEL 144 MEQ/L (136-145)
[2016-10-15] MEDS: IPRATROPIUM 0.5MG/ALBUTEROL 2.5MG INH SOL UD 3ML (DUONEB)(J7620) NEB SCH ×4 (08:03→20:07)
[2016-10-15] MEDS: NS 1,000 ML IV SCH (08:18)
[2016-10-15] MEDS: GABAPENTIN 300 MG CAP PO SCH ×4 (08:18→21:24)
[2016-10-15] MEDS: PANTOPRAZOLE 40MG INJ (PROTONIX) (C9113) IV SCH (08:18)
[2016-10-15] MEDS: LACTOBACILLUS ACIDOPHILUS CAP (BACID) PO SCH ×4 (08:18→21:24)
[2016-10-15 10:00] VITALS: BP 118/68
[2016-10-15 14:00] VITALS: BP 125/67
--- NOTE | 2016-10-15 14:23 | IPNPDOC ---
Text Note Date of Service The patient was seen on 10/15/16. NOTE Subjective: Pt states she feels well. Ambulating today. No flatus or bowel movement today. Abdominal pain improving. Objective: Vitals: (see below) General: No acute distress, laying comfortably in bed. HEENT: Moist mucous membranes. Neck: No JVD or lymphadenopathy Cardiac: RRR, No murmurs Pulm: Clear to auscultation b/l. No wheezing, rhonchi Abd: Minimal tenderness at the surgical site. No rebound guarding or rigidity.ND + BS Ext: No edema or cyanosis Labs (see below) Assessment/Plan 1. Colon ca s/p colectomy- pain management per surgery. CT chest negative for mets. 2. Atelectasis - on incentive spirometer, improving, requiring less O2. 3. Hypokalemia - improved 4. Microcytic anemai - 2/2 AMRIO likely from colon ca - s/p 2U PRBC. Will need ferrous sulfate pills prior to d/c. 5. COPD - on nebs 6. HTN - controlled. Cont home meds 7. HLD on statin 8. 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
[2016-10-15 18:00] VITALS: BP 155/84
[2016-10-15] MEDS: zolPIDEM TARTRATE 5 MG TAB PO SCH (21:24)
[2016-10-15 22:00] VITALS: BP 131/63
[2016-10-16] VITALS (7 sets, daily range): BP systolic 130–166; BP diastolic 64–86
[2016-10-16] MEDS: NS 1,000 ML IV SCH (04:10)
[2016-10-16 06:45] LABS: MEAN CORPUSCULAR HGB CONC 29.2 g/dl (32.0-36.5); MEAN CORPUSCULAR VOLUME 72.1 fl (80.0-96.0); RED CELL DISTRIBUTION WIDTH 19.3 % (11.5-14.5); WHITE BLOOD COUNT 7.8 K/mm3 (4.0-10.0)
[2016-10-16 07:01] LABS: ANION GAP 12 MEQ/L (8-16); BLOOD UREA NITROGEN 8 MG/DL (7-18); CALCIUM LEVEL 8.2 MG/DL (8.8-10.2); CARBON DIOXIDE LEVEL 23 MEQ/L (21-32); CHLORIDE LEVEL 107 MEQ/L (98-107); CREATININE FOR GFR 0.41 MG/DL (0.55-1.02); GLOMERULAR FILTRATION RATE > 60.0 (>32); GLUCOSE, FASTING 72 MG/DL (83-110); POTASSIUM SERUM 4.1 MEQ/L (3.5-5.1); SODIUM LEVEL 142 MEQ/L (136-145)
[2016-10-16] MEDS: IPRATROPIUM 0.5MG/ALBUTEROL 2.5MG INH SOL UD 3ML (DUONEB)(J7620) NEB SCH ×4 (07:36→20:00)
[2016-10-16] MEDS: LACTOBACILLUS ACIDOPHILUS CAP (BACID) PO SCH ×4 (08:13→21:12)
[2016-10-16] MEDS: GABAPENTIN 300 MG CAP PO SCH ×4 (09:46→21:12)
[2016-10-16] MEDS: PANTOPRAZOLE 40MG INJ (PROTONIX) (C9113) IV SCH (09:46)
[2016-10-16] MEDS ORDERED: KETOROLAC 30 MG/ML VIAL (J1885) IV PRN (11:45)
[2016-10-16] MEDS ORDERED: LIDOCAINE 5% OINT 30 GM TOP PRN (13:00)
[2016-10-16] MEDS: HEPARIN SOD (PORCINE) 5000 UNITS/ML VIAL SQ SCH ×2 (14:09→21:13)
[2016-10-16] MEDS: METOCLOPRAMIDE INJ 10MG/2ML VIAL (J2765) IV PRN ×2 (14:11→20:15)
--- NOTE | 2016-10-16 14:13 | IPN ---
DATE: 10/16/2016 Time patient was seen was at 10 a.m. Patient has been seen and examined at bedside. No acute event over night. Patient is feeling better today. Stated that she had a bowel movement last night and also this morning. Patient denies any fever or chills, any chest pain, trouble breathing. Her abdominal pain has been controlled with pain medication. She also has been out of bed to chair. Patient denies any other current new complaints and patient states she would like to go home soon. PHYSICAL EXAMINATION: VITAL SIGNS: Temperature was 96.9, pulse 89, respiration 18, blood pressure 131/77, oxygen was saturating at 96% on 1 liter of nasal cannula. Patient's total in last night was 1200 and total output was 800 with a balance of 400. GENERAL: Patient is a pleasant, elderly female who was alert, awake, oriented times three. Does not appear to be in distress. Resting comfortably in bed with head elevated at 30-degrees. HEENT: Normocephalic, atraumatic. Extraocular motor intact. Mucosa moist. NECK: Supple. No neck lymphadenopathy. CARDIOVASCULAR: Regular rate and rhythm. S1, S2. No murmur, rubs or gallops. LUNGS: Clear to auscultation. No rales, rhonchi. ABDOMEN: Positive bowel sounds. Soft. Nontender. Nondistended. No peritoneal signs. No ecchymosis. Incision was clean, dry and intact. SKIN: Warm and dry. NEUROLOGIC: Cranial nerves II-XII intact. No focal neurologic deficit. EXTREMITIES: No edema, clubbing or cyanosis. LABORATORIES: WBC 7.8, hemoglobin was 10.7, hematocrit was 36.8, with a platelet count of 371 and MCV of 72.1. Sodium 142, potassium 4.1, chloride 107, bicarbonate 23, BUN 8, creatinine 0.41, GFR greater than 60, fasting glucose 72, calcium 8.2. ASSESSMENT AND PLAN: 86-year-old female with past medical history of colon cancer, hypertension, hyperlipidemia, colitis, arthritis, anxiety, depression, osteoporosis, degenerative joint disease, questionable congestive heart failure (CHF), presented with: 1. Colon cancer, status post laparoscopic right colectomy with Dr. Sanchez. Postoperative day (POD) #4. Continue pain management, diet management, IV fluid per general surgery. Patient's Joseph has been discontinued today as well. Will continue to monitor and follow with general surgery. 2. Questionable heart failure (CHF). We still do not have the medical record from the patient's cardiology office. Patient is on regular diet now and IV fluid has been discontinued. Will continue to monitor. 3. Hypokalemia, resolved. 4. Microcytic anemia, likely secondary to severe iron deficiency. However, due to patient just had surgery, we are considering iron supplementation in outpatient. Patient also was status post 2 units of packed red blood cells (PRBC), which would provide about 500 mg of iron itself. 5. Chronic obstructive pulmonary disease (COPD). Continue DuoNebs. 6. Hyperlipidemia. Continue home medication. 7. Hypertension. Continue home medications. Will continue to hold Lasix for now due to patient has been nothing by mouth for some time and the recently started on regular diet. 8. Fibrotic lung changes noticed on chest x-ray. CT of the chest did not show any acute findings as well. No metastatic cancer were found on the CT chest. 9. Deep vein thrombosis (DVT) prophylaxis. On sequential compression devices (SCD) and will be managed per general surgery as well. DISPOSITION: We will continue to follow with general surgery and continue to monitor patient's respiratory status closely. Will provide PO iron supplement at discharge. Patient has been discussed with attending doctor, Dr. Jade. My preceptor for this patient encounter was Rakan Jade MD. The preceptor was physically present in the building during the encounter and was fully available. As needed, all aspects of the patient interview, examination, medical decision making process, and medical care plan development were reviewed and approved by the preceptor. The preceptor is aware and concurs with the plan as stated in the body of this note and will attest to such by his/her co-signature. NORBERT
[2016-10-16] MEDS: PROMETHAZINE INJ 25 MG/ML VIAL (J2550) IV PRN (17:26)
[2016-10-16] MEDS: NORCO, ANEXSIA 5/325MG TABLET (HYDROcodone/ACETAMINOPHEN) PO PRN (18:13)
[2016-10-16] MEDS: zolPIDEM TARTRATE 5 MG TAB PO SCH (21:12)
[2016-10-17] VITALS (7 sets, daily range): BP systolic 155–175; BP diastolic 71–92
[2016-10-17] MEDS: PROMETHAZINE INJ 25 MG/ML VIAL (J2550) IV PRN ×2 (00:04→06:07)
[2016-10-17] MEDS: METOCLOPRAMIDE INJ 10MG/2ML VIAL (J2765) IV PRN ×4 (03:29→23:19)
--- NOTE | 2016-10-17 04:40 | REPUSA ---
CLINICAL HISTORY: NGT. COMMENTS: NG tube is in place, tip in the stomach. The abdominal gas shadows and soft tissue outlines appear normal. 3.5 cm calcification is seen in the LUQ.. No definite evidence for obstruction. There is no evidence for free air, free fluid, masses, organome julisa or urinary calculi. Surgical clips are noted in the lower abdomen. IMPRESSION: 3.5 cm calcification is seen in the LUQ.. No acute radiographic abnormalities. NG tube is in place, tip in the stomach. Thank you for your kind referral of this patient.
[2016-10-17 06:47] LABS: MEAN CORPUSCULAR HEMOGLOBIN 21.8 pg (27.0-33.0); MEAN CORPUSCULAR HGB CONC 29.9 g/dl (32.0-36.5); RED CELL DISTRIBUTION WIDTH 20.2 % (11.5-14.5); WHITE BLOOD COUNT 7.7 K/mm3 (4.0-10.0)
[2016-10-17 06:50] LABS: ANION GAP 16 MEQ/L (8-16); BLOOD UREA NITROGEN 4 MG/DL (7-18); CALCIUM LEVEL 8.5 MG/DL (8.8-10.2); CARBON DIOXIDE LEVEL 18 MEQ/L (21-32); CHLORIDE LEVEL 108 MEQ/L (98-107); CREATININE FOR GFR 0.43 MG/DL (0.55-1.02); GLOMERULAR FILTRATION RATE > 60.0 (>32); GLUCOSE, FASTING 85 MG/DL (83-110); SODIUM LEVEL 142 MEQ/L (136-145)
[2016-10-17] MEDS: IPRATROPIUM 0.5MG/ALBUTEROL 2.5MG INH SOL UD 3ML (DUONEB)(J7620) NEB SCH ×4 (08:00→19:49)
[2016-10-17] MEDS: PANTOPRAZOLE 40MG INJ (PROTONIX) (C9113) IV SCH (08:03)
[2016-10-17] MEDS: LACTOBACILLUS ACIDOPHILUS CAP (BACID) PO SCH ×4 (08:04→20:44)
[2016-10-17] MEDS: GABAPENTIN 300 MG CAP PO SCH ×4 (08:04→20:44)
[2016-10-17] MEDS: HEPARIN SOD (PORCINE) 5000 UNITS/ML VIAL SQ SCH ×2 (08:29→21:00)
[2016-10-17] MEDS: ONDANSETRON 4MG/2ML VIAL (J2405) IV PRN ×2 (12:22→19:43)
[2016-10-17 13:27] LABS: ANION GAP 15 MEQ/L (8-16); BLOOD UREA NITROGEN 4 MG/DL (7-18); CALCIUM LEVEL 8.1 MG/DL (8.8-10.2); CARBON DIOXIDE LEVEL 19 MEQ/L (21-32); CHLORIDE LEVEL 108 MEQ/L (98-107); CREATININE FOR GFR 0.46 MG/DL (0.55-1.02); GLOMERULAR FILTRATION RATE > 60.0 (>32); GLUCOSE, FASTING 97 MG/DL (83-110); POTASSIUM SERUM 3.4 MEQ/L (3.5-5.1); SODIUM LEVEL 142 MEQ/L (136-145)
--- NOTE | 2016-10-17 14:40 | IPNPDOC ---
Text Note Date of Service The patient was seen on 10/17/16. NOTE Subjective: Pt had N/V last night and had NG tube placed after eating a chicken dinner. Objective: Vitals: (see below) General: No acute distress, laying comfortably in bed. HEENT: Moist mucous membranes. NG tube with dried blood at the nasal passage. Neck: No JVD or lymphadenopathy Cardiac: RRR, No murmurs Pulm: Clear to auscultation b/l. No wheezing, rhonchi Abd: Surgical site clean and dry, debby intact. NT/ND + BS Ext: No edema or cyanosis Labs (see below) Assessment/Plan 1. Colon ca s/p colectomy- pain management per surgery. CT chest negative for mets. 2. Post- op Ileus - NG tube in place for N/V yesterday. 3. Atelectasis - on incentive spirometer, improving, Off O2 4. Microcytic anemai - 2/2 MARIO likely from colon ca - s/p 2U PRBC. Will need ferrous sulfate pills prior to d/c. 5. COPD - on nebs 6. HTN - controlled. Cont home meds 7. HLD on statin 8. 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 - will need outpt f/u DVT prophy: SCDs VS,Fishbone, I+O VS, Fishbone, I+O Laboratory Tests 10/17/16 05:58 Calcium Level 8.5 L, Red Blood Count 5.01, Mean Corpuscular Volume 73.0 L, Mean Corpuscular Hemoglobin 21.8 L, Mean Corpuscular Hemoglobin Concent 29.9 L, Red Cell Distribution Width 20.2 H 10/17/16 12:59 Calcium Level 8.1 L Vital Signs Date Time Temp Pulse Resp B/P Pulse Ox O2 Delivery O2 Flow Rate FiO2 10/17/16 14:00 97.4 86 19 157/86 97 Room Air 10/16/16 06:00 1.0 10/12/16 16:15 100 I&O- Last 24 Hours up to 6 AM 10/17/16 06:00 Intake Total 250 ml Output Total 2050 ml Balance -[address] MD Oct 17, 2016 14:40
[2016-10-17] MEDS: zolPIDEM TARTRATE 5 MG TAB PO SCH (20:44)
[2016-10-17] MEDS: NORCO, ANEXSIA 5/325MG TABLET (HYDROcodone/ACETAMINOPHEN) PO PRN (23:20)
[2016-10-18 02:00] VITALS: BP 145/72
[2016-10-18 06:00] VITALS: BP 133/81
[2016-10-18 06:09] LABS: MEAN CORPUSCULAR HEMOGLOBIN 21.6 pg (27.0-33.0); MEAN CORPUSCULAR HGB CONC 30.7 g/dl (32.0-36.5); MEAN CORPUSCULAR VOLUME 70.1 fl (80.0-96.0); RED CELL DISTRIBUTION WIDTH 19.6 % (11.5-14.5); WHITE BLOOD COUNT 9.1 K/mm3 (4.0-10.0)
[2016-10-18] MEDS: ONDANSETRON 4MG/2ML VIAL (J2405) IV PRN (06:47)
[2016-10-18] MEDS: IPRATROPIUM 0.5MG/ALBUTEROL 2.5MG INH SOL UD 3ML (DUONEB)(J7620) NEB SCH ×4 (07:59→20:00)
[2016-10-18 08:59] LABS: BASO % 0.3 % (0.0-1.0); EOS # 0.1 K/mm3 (0.0-0.50); EOS % 1.1 % (0.0-3.0); LARGE UNSTAINED CELL # 0.2 K/mm3 (0.0-0.4); LARGE UNSTAINED CELL % 2.3 % (0.0-4.0); LYMPH # 1.2 K/mm3 (1.5-4.5); LYMPH % 14.1 % (24.0-44.0); MEAN CORPUSCULAR HEMOGLOBIN 21.3 pg (27.0-33.0); MEAN CORPUSCULAR HGB CONC 30.2 g/dl (32.0-36.5); MEAN CORPUSCULAR VOLUME 70.5 fl (80.0-96.0); MONO # 0.5 K/mm3 (0.0-0.8); MONO % 5.5 % (0.0-5.0); NEUTROPHILS # 6.7 K/mm3 (1.8-7.7); NEUTROPHILS % 76.5 % (36.0-66.0); PLATELET COUNT, AUTOMATED 421 k/mm3 (150-450); RED CELL DISTRIBUTION WIDTH 19.6 % (11.5-14.5); WHITE BLOOD COUNT 8.7 K/mm3 (4.0-10.0)
[2016-10-18] MEDS: HEPARIN SOD (PORCINE) 5000 UNITS/ML VIAL SQ SCH ×2 (09:02→22:19)
[2016-10-18] MEDS: PANTOPRAZOLE 40MG INJ (PROTONIX) (C9113) IV SCH (09:02)
[2016-10-18] MEDS: LACTOBACILLUS ACIDOPHILUS CAP (BACID) PO SCH ×4 (09:03→21:00)
[2016-10-18] MEDS: KCL 20MEQ in NS 1000ML 1,000 ML IV SCH (09:03)
[2016-10-18] MEDS: GABAPENTIN 300 MG CAP PO SCH ×4 (09:04→21:00)
[2016-10-18 09:17] LABS: ALBUMIN 2.8 GM/DL (3.2-5.2); ALKALINE PHOSPHATASE 104 U/L (45-117); ALT/SGPT 21 U/L (12-78); ANION GAP 14 MEQ/L (8-16); AST/SGOT 35 U/L (15-37); BILIRUBIN,TOTAL 0.6 MG/DL (0.2-1.0); BLOOD UREA NITROGEN 7 MG/DL (7-18); CALCIUM LEVEL 8.4 MG/DL (8.8-10.2); CARBON DIOXIDE LEVEL 22 MEQ/L (21-32); CHLORIDE LEVEL 110 MEQ/L (98-107); CREATININE FOR GFR 0.53 MG/DL (0.55-1.02); GLOMERULAR FILTRATION RATE > 60.0 (>32); GLUCOSE, FASTING 98 MG/DL (83-110); POTASSIUM SERUM 3.5 MEQ/L (3.5-5.1); SODIUM LEVEL 146 MEQ/L (136-145); TOTAL PROTEIN 6.3 GM/DL (6.4-8.2)
[2016-10-18 10:00] VITALS: BP 143/89
--- NOTE | 2016-10-18 13:54 | IPN ---
DATE: 10/18/2016 Time patient was seen was this morning at 8:45. Patient has been seen and examined at bedside. No acute events overnight; however, over the weekend the patient had an episode of ileus and could not tolerate diet. Therefore, the patient was subsequently put on NG tube to decompress the patient's stomach. Today, Dr. Jade has planned to restart the patient on a clear liquid diet and clamp the NG tube. Otherwise, the patient denies any fever or chills, any trouble with breathing, any abdominal pains, nausea, vomiting, diarrhea or constipation. The patient is not passing flatus. Denies any other current new complaints. PHYSICAL EXAMINATION: VITAL SIGNS: Temperature was 99.3, pulse 100, respirations 20, blood pressure 133/81, oxygen was saturating at 94% on room air. GENERAL: Patient is a pleasant, elderly female who looked more tired than when I saw her last Tuesday who was alert, awake, and oriented times three with head elevated at 30 degrees. HEENT: Normocephalic, atraumatic. Extraocular motor intact. Mucosa moist. NECK: Supple. No neck lymphadenopathy. CARDIOVASCULAR: Regular rate and rhythm. S1, S2. No murmur, rubs or gallops. LUNGS: Clear to auscultation bilaterally. No wheeze, rales or rhonchi. ABDOMEN: Mildly tender to palpation around the incision site. Otherwise, incision dry, clean and intact. Hypoactive bowel sounds. No peritoneal signs. No ecchymosis. EXTREMITIES: No edema, clubbing or cyanosis. SKIN: Warm and dry. NEUROLOGIC: Cranial nerves II-XII intact. No focal neurological deficit. LABORATORIES: WBC 8.7, hemoglobin 12.1, hematocrit 40.1, with a platelet count of 421 and MCV of 70.5. Sodium 146, potassium 3.5, chloride 110, bicarbonate 22, BUN 7, creatinine 0.53, GFR greater than 60, fasting glucose 98, calcium 8.4, total bilirubin 0.6, AST 35, ALT 21, alkaline phosphatase 104, total protein 6.3, albumin 2.8. No new imaging. ASSESSMENT AND PLAN: 86-year-old female with past medical history of colon cancer, hypertension, hyperlipidemia, colitis, arthritis, anxiety, depression, osteoporosis, degenerative joint disease, questionable congestive heart failure (CHF), who presented with: 1. Colon cancer, status post laparoscopic right colectomy with Dr. Sanchez. Postoperative day (POD) #6. The patient developed postoperative ileus over the weekend and has been placed on NG tube for gastric decompression. Continue general surgery management and will follow. General surgery has planned on restarting patient on a clear liquid diet and to clamp the patient's NG tube this morning. Will follow. 2. Postoperative ileus. Will continue to follow general surgery's plan. 3. Hypokalemia. Potassium was slightly low this morning. Will continue to monitor. 4. Microcytic anemia, likely secondary to severe iron deficiency. Due to patient just had surgery and received 2 units of packed red blood cells (PRBCs) during the operation, we are considering starting patient on by mouth supplementation once patient goes home. 5. Chronic obstructive pulmonary disease (COPD). Continue DuoNebs. 6. Hyperlipidemia. Continue home medication. 7. Hypertension. Continue home medication. Continue to hold Lasix due to patient is nothing by mouth (n.p.o.). 8. Fibrotic lung changes noticed on chest x-ray. CT of the chest did not show any acute findings nor metastasis. Will continue to monitor. 9. Deep vein thrombosis (DVT) prophylaxis. On subcutaneous heparin. DISPOSITION: Will continue to follow with general surgery recommendation and patient will need by mouth iron supplementation at discharge. Patient has been discussed with attending doctor, Dr. Jade. My preceptor for this patient encounter was Rakan Jade MD. The preceptor was physically present in the building during the encounter and was fully available. As needed, all aspects of the patient interview, examination, medical decision making process, and medical care plan development were reviewed and approved by the preceptor. The preceptor is aware and concurs with the plan as stated in the body of this note and will attest to such by his/her co-signature.
[2016-10-18 14:00] VITALS: BP 119/70
[2016-10-18 18:00] VITALS: BP 121/66
[2016-10-18 22:00] VITALS: BP 100/57
[2016-10-18] MEDS: zolPIDEM TARTRATE 5 MG TAB PO SCH (22:19)
[2016-10-19 02:00] VITALS: BP 105/55
[2016-10-19] MEDS: KCL 20MEQ in NS 1000ML 1,000 ML IV SCH (04:16)
[2016-10-19 06:00] VITALS: BP 156/74
[2016-10-19 07:11] LABS: BASO % 0.3 % (0.0-1.0); EOS # 0.2 K/mm3 (0.0-0.50); EOS % 2.2 % (0.0-3.0); LARGE UNSTAINED CELL # 0.2 K/mm3 (0.0-0.4); LARGE UNSTAINED CELL % 1.9 % (0.0-4.0); LYMPH # 1.5 K/mm3 (1.5-4.5); MEAN CORPUSCULAR HGB CONC 29.6 g/dl (32.0-36.5); MEAN CORPUSCULAR VOLUME 70.7 fl (80.0-96.0); MONO # 0.4 K/mm3 (0.0-0.8); MONO % 4.8 % (0.0-5.0); NEUTROPHILS # 5.9 K/mm3 (1.8-7.7); NEUTROPHILS % 72.7 % (36.0-66.0); PLATELET COUNT, AUTOMATED 400 k/mm3 (150-450); RED CELL DISTRIBUTION WIDTH 19.8 % (11.5-14.5); WHITE BLOOD COUNT 8.2 K/mm3 (4.0-10.0)
[2016-10-19 07:20] LABS: ALBUMIN 2.5 GM/DL (3.2-5.2); ALBUMIN/GLOBULIN RATIO 0.64 (1.00-1.93); ALKALINE PHOSPHATASE 82 U/L (45-117); ALT/SGPT 18 U/L (12-78); ANION GAP 13 MEQ/L (8-16); AST/SGOT 25 U/L (15-37); BILIRUBIN,TOTAL 0.5 MG/DL (0.2-1.0); BLOOD UREA NITROGEN 11 MG/DL (7-18); CARBON DIOXIDE LEVEL 23 MEQ/L (21-32); CHLORIDE LEVEL 109 MEQ/L (98-107); CREATININE FOR GFR 0.52 MG/DL (0.55-1.02); GLOMERULAR FILTRATION RATE > 60.0 (>32); GLUCOSE, FASTING 79 MG/DL (83-110); POTASSIUM SERUM 2.9 MEQ/L (3.5-5.1); SODIUM LEVEL 145 MEQ/L (136-145); TOTAL PROTEIN 6.4 GM/DL (6.4-8.2)
[2016-10-19] MEDS: IPRATROPIUM 0.5MG/ALBUTEROL 2.5MG INH SOL UD 3ML (DUONEB)(J7620) NEB SCH ×5 (08:00→20:00)
[2016-10-19] MEDS: PANTOPRAZOLE 40MG INJ (PROTONIX) (C9113) IV SCH (08:37)
[2016-10-19] MEDS: LACTOBACILLUS ACIDOPHILUS CAP (BACID) PO SCH ×4 (08:37→20:49)
[2016-10-19] MEDS: HEPARIN SOD (PORCINE) 5000 UNITS/ML VIAL SQ SCH ×2 (08:37→20:49)
[2016-10-19] MEDS: GABAPENTIN 300 MG CAP PO SCH ×4 (08:38→20:48)
[2016-10-19] MEDS ORDERED: POTASSIUM CHLORIDE 10% LIQ 20 MEQ/15 ML UDC PO ONE ×2 (08:45→09:00)
[2016-10-19] MEDS ORDERED: POTASSIUM CHLORIDE 10 MEQ SR TABLET PO SCH (09:00)
[2016-10-19] MEDS: KCL 40MEQ IN D5/0.45NS 1000ML 1,000 ML IV SCH (09:48)
[2016-10-19 10:00] VITALS: BP 179/94
--- NOTE | 2016-10-19 13:16 | REP ---
Chest x-ray: Two views. History: Shortness of breath. Comparison chest x-ray October 14, 2016. Findings: The lungs are hyperinflated consistent with some degree of COPD. This is unchanged. No infiltrate is seen. Pleural angles are sharp. Heart size is normal. The aorta is calcific and slightly tortuous. There are mild degenerative changes in the thoracic spine. Impression: Hyperinflation consistent with COPD. No acute infiltrate. Signed by Trace Metz MD 10/19/2016 03:17 P
[2016-10-19 14:00] VITALS: BP 162/90
[2016-10-19 16:41] LABS: ANION GAP 8 MEQ/L (8-16); BLOOD UREA NITROGEN 10 MG/DL (7-18); CALCIUM LEVEL 8.1 MG/DL (8.8-10.2); CARBON DIOXIDE LEVEL 27 MEQ/L (21-32); CHLORIDE LEVEL 108 MEQ/L (98-107); CREATININE FOR GFR 0.56 MG/DL (0.55-1.02); GLOMERULAR FILTRATION RATE > 60.0 (>32); GLUCOSE, FASTING 105 MG/DL (83-110); POTASSIUM SERUM 3.5 MEQ/L (3.5-5.1); SODIUM LEVEL 143 MEQ/L (136-145)
[2016-10-19 18:00] VITALS: BP 132/66
[2016-10-19] MEDS: ONDANSETRON 4MG/2ML VIAL (J2405) IV PRN (18:16)
--- NOTE | 2016-10-19 20:15 | IPN ---
DATE: 10/19/2016 Time patient was seen was this morning at 9:30 a.m. Patient has been seen and examined at the bedside. No acute events overnight. Patient still feels tired. However, she was able to have three bowel movements since last night. Therefore, per general surgery, patient's nasogastric (NG) tube will be removed this morning. Otherwise, she denies any chest pain, any abdominal pain, nausea, vomiting, diarrhea, constipation, or any problem with urination. She, however, did have some trouble breathing this morning as well. Patient, however, denies any other current new complaints. PHYSICAL EXAMINATION: VITAL SIGNS: Temperature 98, pulse 85, respirations 24, blood pressure 166/74, oxygen was saturating at 92% on room air. GENERAL: Patient is a tired-looking elderly female who is alert, awake, oriented times three. However, does not appear to be in distress, resting comfortably in bed with head elevated at 60 degrees. HEENT: Normocephalic, atraumatic. Extraocular motors intact. Mucous moist. Neck supple. No neck lymphadenopathy. CARDIOVASCULAR: Regular rate and rhythm, S1, S2, 2/6 systolic heart murmur. LUNGS: Clear to auscultation bilaterally. No wheezing, rales, or rhonchi. ABDOMEN: Soft, positive bowel sounds, nontender, nondistended. No peritoneal signs. No ecchymosis. Incision was dry, clean, and intact. SKIN: Warm and dry. NEUROLOGIC: Cranial nerves II-XII intact. No focal neurological deficit. LABORATORY DATA: WBC 8.2, hemoglobin 11.7, hematocrit 39.5, platelet count 400, MCV 70.7. Sodium 145, potassium was really low this morning, it was 2.9, chloride 109, bicarbonate 23, BUN 11, creatinine 0.52, GFR greater than 60, fasting glucose 79 , calcium 8, total bilirubin 0.5, AST 25, ALT 18, alkaline phosphatase 82, total protein 6.4, albumin 2.5. Patient had a two view chest xray this morning that showed hyperinflation consistent with chronic obstructive pulmonary disease (COPD), no acute infiltrate however. ASSESSMENT AND PLAN: 86-year-old female with past medical history of colon cancer, hypertension, hyperlipidemia, colitis, arthritis, anxiety, depression, osteoporosis, degenerative joint disease, questionable congestive heart failure (CHF), presented with: 1. Colon cancer status post laparoscopic right colectomy with Dr. Sanchez. Postoperative day #7. Patient developed postoperative ileus a few days ago which appears to be resolved today. Nasogastric (NG) is planned to be removed. Patient is on clear liquid diet. Will continue to follow. 2. Postoperative ileus, appears to be resolved. Followed by general surgery. 3. Hypokalemia. Potassium was really low this morning, it was only 2.6. Will start patient on potassium 40 mEq half normal saline with 5% dextrose (D5) at a rate of 50 mL/hour and continue to monitor patient. Patient also has been given 80 mg of elixir by general surgery this morning. 4. Macrocytic anemia, likely secondary to severe iron deficiency. Patient received some iron from 2 units of packed red blood cells (PRBCs). We are considering oral supplementation once patient goes home. 5. Chronic obstructive pulmonary disease (COPD). Continue DuoNebs. Patient did have some increased trouble breathing today. Chest xray was done which was negative. Will continue to monitor. 6. Hyperlipidemia. Continue home medication. 7. Hypertension. Continue home medication. Continue to hold Lasix for now. 8. Fibrotic lung disease on xray. CT chest did not show any acute findings or metastasis. 9. Deep venous thrombosis (DVT) prophylaxis on subcutaneous heparin. DISPOSITION: Continue to follow general surgery's recommendations and will follow medically. We are considering to give patient iron supplement. Patient has been discussed with attending doctor, Dr. Lopez. My preceptor for this patient encounter was Dr. Mile Lopez. The preceptor was physically present in the building during the encounter and was fully available. As needed, all aspects of the patient interview, examination, medical decision making process, and medical care plan development were reviewed and approved by the preceptor. The preceptor is aware and concurs with the plan as stated in the body of this note and will attest to such by her cosignature. NORBERT
[2016-10-19] MEDS: RAMELTEON 8 MG TAB (ROZEREM) PO SCH (20:48)
[2016-10-19 22:00] VITALS: BP 102/63
--- NOTE | 2016-10-20 00:44 | ECGEPIP ---
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 HEART RATE IS NOW FASTER OTHERWISE NO SIGNIFICANT CHANGES Electronically Signed On 10-20-2016 0:43:35 EDT by Gucci Vega
[2016-10-20 02:00] VITALS: BP 108/65
[2016-10-20] MEDS: KCL 40MEQ IN D5/0.45NS 1000ML 1,000 ML IV SCH ×2 (05:01→21:58)
[2016-10-20 06:00] VITALS: BP 143/83
[2016-10-20] MEDS: IPRATROPIUM 0.5MG/ALBUTEROL 2.5MG INH SOL UD 3ML (DUONEB)(J7620) NEB SCH ×4 (07:15→20:40)
[2016-10-20 08:03] LABS: ALBUMIN 2.4 GM/DL (3.2-5.2); ALBUMIN/GLOBULIN RATIO 0.71 (1.00-1.93); ALKALINE PHOSPHATASE 71 U/L (45-117); ALT/SGPT 15 U/L (12-78); ANION GAP 9 MEQ/L (8-16); AST/SGOT 20 U/L (15-37); BILIRUBIN,TOTAL 0.5 MG/DL (0.2-1.0); BLOOD UREA NITROGEN 7 MG/DL (7-18); CALCIUM LEVEL 8.2 MG/DL (8.8-10.2); CARBON DIOXIDE LEVEL 28 MEQ/L (21-32); CHLORIDE LEVEL 107 MEQ/L (98-107); CREATININE FOR GFR 0.49 MG/DL (0.55-1.02); GLOMERULAR FILTRATION RATE > 60.0 (>32); GLUCOSE, FASTING 102 MG/DL (83-110); MAGNESIUM LEVEL 2.1 MG/DL (1.8-2.4); POTASSIUM SERUM 3.7 MEQ/L (3.5-5.1); SODIUM LEVEL 144 MEQ/L (136-145); TOTAL PROTEIN 5.8 GM/DL (6.4-8.2)
[2016-10-20 08:33] LABS: BASO % 0.3 % (0.0-1.0); EOS # 0.2 K/mm3 (0.0-0.50); EOS % 3.1 % (0.0-3.0); LARGE UNSTAINED CELL # 0.2 K/mm3 (0.0-0.4); LARGE UNSTAINED CELL % 2.5 % (0.0-4.0); LYMPH # 1.4 K/mm3 (1.5-4.5); LYMPH % 21.2 % (24.0-44.0); MEAN CORPUSCULAR HEMOGLOBIN 20.7 pg (27.0-33.0); MEAN CORPUSCULAR HGB CONC 29.5 g/dl (32.0-36.5); MEAN CORPUSCULAR VOLUME 70.1 fl (80.0-96.0); MONO # 0.4 K/mm3 (0.0-0.8); MONO % 5.5 % (0.0-5.0); NEUTROPHILS # 4.3 K/mm3 (1.8-7.7); NEUTROPHILS % 67.4 % (36.0-66.0); PLATELET COUNT, AUTOMATED 344 k/mm3 (150-450); RED CELL DISTRIBUTION WIDTH 19.9 % (11.5-14.5); WHITE BLOOD COUNT 6.4 K/mm3 (4.0-10.0)
[2016-10-20 08:53] LABS: ADD MORPHOLOGY? YES
[2016-10-20] MEDS: GABAPENTIN 300 MG CAP PO SCH ×5 (09:10→21:57)
[2016-10-20] MEDS: LACTOBACILLUS ACIDOPHILUS CAP (BACID) PO SCH ×5 (09:10→21:57)
[2016-10-20] MEDS: PANTOPRAZOLE 40MG INJ (PROTONIX) (C9113) IV SCH (09:11)
[2016-10-20] MEDS: HEPARIN SOD (PORCINE) 5000 UNITS/ML VIAL SQ SCH ×2 (09:11→21:57)
[2016-10-20] MEDS: ONDANSETRON 4MG/2ML VIAL (J2405) IV PRN (09:11)
[2016-10-20 10:00] VITALS: BP 138/80
[2016-10-20 10:30] LABS: ANISOCYTOSIS 2+; HYPOCHROMASIA 3+; MICROCYTOSIS 3+
--- NOTE | 2016-10-20 10:56 | ECGEPIP ---
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
[2016-10-20] MEDS: METOCLOPRAMIDE INJ 10MG/2ML VIAL (J2765) IV PRN ×2 (11:04→17:00)
[2016-10-20 14:00] VITALS: BP 140/80
--- NOTE | 2016-10-20 16:09 | IPN ---
DATE: 10/20/2016 TIME PATIENT WAS SEEN: This morning at 8:30. Patient seen and examined at the bedside. No acute events overnight. Patient still feels nauseous this morning; however, breathing has improved. Otherwise, she denies any fevers or chills, any chest pain, any abdominal pain, any vomiting, any diarrhea or constipation. Patient is passing flatus and tolerating diet. Patient also ambulated yesterday and tolerated well; however, she stated that she is feeling more tired after she ambulates. Denies any other current new complaints. PHYSICAL EXAMINATION: VITAL SIGNS: Temperature was 98.1, pulse 81, respirations 18, blood pressure 143/83, oxygen was saturating at 92% on room air. GENERAL: Patient is a pleasant elderly female who was alert, awake, oriented times three. Appears to be tired. Resting comfortably in bed with head elevated at 30 degrees. HEENT: Normocephalic, atraumatic. Extraocular motor intact. Mucosa moist. NECK: Supple. No neck lymphadenopathy. CARDIOVASCULAR: Regular rate and rhythm. S1, S2. A 2/6 systolic heart murmur. LUNGS: Clear to auscultation bilaterally. No wheezes, rales, or rhonchi. ABDOMEN: Positive bowel sounds. Soft, nontender, nondistended. No peritoneal signs. Incisions were clean, dry, and intact. EXTREMITIES: No edema, clubbing, or cyanosis. SKIN: Warn and dry. NEUROLOGIC: Cranial nerves II-XII intact. No focal neurological deficit. LABORATORY DATA: WBC 6.4, hemoglobin 10.9, hematocrit 36.9 with a platelet count of 344 and MCV of 70.1. Sodium 144, potassium 3.7, chloride 107, bicarbonate 28, BUN 7, creatinine 0.49, GFR greater than 60, fasting glucose 102, calcium 8.2, magnesium 2.1. Total bilirubin 0.5, AST 20, ALT was 71, alkaline phosphatase 71. Total creatinine 28. CK-MB 1.2, CK-MB index 4.28. Troponin 0.06, reduced compared to day prior, 0.13. Total protein 5.8. Albumin was 2.4, reduced. No new imaging. ASSESSMENT AND PLAN: An 86-year-old female with past medical history of colon cancer, hypertension, hyperlipidemia, colitis, arthritis, anxiety and depression, osteoporosis, degenerative joint disease, questionable congestive heart failure (CHF), presented with: 1. Colon cancer status post laparoscopic right colectomy with Dr. Sanchez, postoperative day #8. Patient's postoperative ileus seems to have resolved; however, she is still complaining of feeling nauseous. Will continue to follow surgery recommendations regarding pain management and diet and continue to follow. Will continue to encourage patient to ambulate and continue incentive spirometry. 2. Postoperative ileus appears to have resolved. Continue to follow general surgery. 3. Shortness of breath. EKG was done this morning and yesterday and shows comparable with prior. Patient does have a right bundle branch block and nonspecific- ST-T-wave abnormalities. Patient denies any chest pain. Troponin has been trending down. 4. Hypokalemia. Potassium has been within normal range today. Continue K40 with half-normal with D5 at a rate of 50 mL per hour. Will stop the intravenous (IV) fluid once patient is able to tolerate diet. Currently patient only eats a small amount. 5. Microcytic anemia with mean corpuscular volume (MCV) of 70, likely secondary to iron deficiency. Patient did receive 2 units of packed red blood cells (PRBC) , which contains iron. At this point, we have decided to start patient on oral supplement outpatient. 6. Chronic obstructive pulmonary disease (COPD). Continue DuoNeb. 7. Hyperlipidemia. Continue home medication. 8. Hypertension. Continue home medication. 9. Fibrotic lung disease on chest x-ray. CT has been repeated. Also shows fibrotic changes; however, there were no acute findings. No metastasis. 10. Deep vein thrombosis (DVT) prophylaxis, on subcutaneous heparin. DISPOSITION: Patient is improving. Able to tolerate diet, however, still has some nausea. Patient has ambulated and still has bowel movements. Continue to monitor and continue to follow general surgery. Will give iron supplement when patient goes home. Patient has been discussed with attending doctor, Dr. Curran. My preceptor for this patient encounter was Dr. Ney Curran. The preceptor was physically present in the building during the encounter and was fully available as needed. All aspects of the patient interview, examination, medical decision making process, and medical care plan development were reviewed and approved by the preceptor. The preceptor is aware and concurs with the plan as stated in the body of this note and will attest to such by his/her co-signature. Attending note: patient seen and examined independently. All aspects of medical treatment discussed with resident and agree with above course of action MTDD
[2016-10-20 18:00] VITALS: BP 130/80
[2016-10-20] MEDS: RAMELTEON 8 MG TAB (ROZEREM) PO SCH (21:00)
[2016-10-20 22:00] VITALS: BP 122/69
[2016-10-21 02:00] VITALS: BP 109/65
[2016-10-21 06:00] VITALS: BP 159/86
[2016-10-21 07:09] LABS: ALBUMIN 2.7 GM/DL (3.2-5.2); ALBUMIN/GLOBULIN RATIO 0.79 (1.00-1.93); ALKALINE PHOSPHATASE 78 U/L (45-117); ALT/SGPT 20 U/L (12-78); ANION GAP 9 MEQ/L (8-16); AST/SGOT 23 U/L (15-37); BILIRUBIN,TOTAL 0.5 MG/DL (0.2-1.0); BLOOD UREA NITROGEN 6 MG/DL (7-18); CALCIUM LEVEL 8.2 MG/DL (8.8-10.2); CARBON DIOXIDE LEVEL 27 MEQ/L (21-32); CHLORIDE LEVEL 107 MEQ/L (98-107); CREATININE FOR GFR 0.68 MG/DL (0.55-1.02); GLOMERULAR FILTRATION RATE > 60.0 (>32); GLUCOSE, FASTING 109 MG/DL (83-110); POTASSIUM SERUM 3.9 MEQ/L (3.5-5.1); SODIUM LEVEL 143 MEQ/L (136-145); TOTAL PROTEIN 6.1 GM/DL (6.4-8.2)
[2016-10-21 07:15] LABS: BASO % 0.7 % (0.0-1.0); EOS # 0.2 K/mm3 (0.0-0.50); LARGE UNSTAINED CELL # 0.2 K/mm3 (0.0-0.4); LARGE UNSTAINED CELL % 2.6 % (0.0-4.0); LYMPH % 26.6 % (24.0-44.0); MEAN CORPUSCULAR HEMOGLOBIN 21.1 pg (27.0-33.0); MEAN CORPUSCULAR HGB CONC 30.2 g/dl (32.0-36.5); MEAN CORPUSCULAR VOLUME 69.6 fl (80.0-96.0); MONO # 0.4 K/mm3 (0.0-0.8); MONO % 5.3 % (0.0-5.0); NEUTROPHILS # 4.6 K/mm3 (1.8-7.7); NEUTROPHILS % 61.8 % (36.0-66.0); PLATELET COUNT, AUTOMATED 384 k/mm3 (150-450); RED CELL DISTRIBUTION WIDTH 20.3 % (11.5-14.5); WHITE BLOOD COUNT 7.4 K/mm3 (4.0-10.0)
[2016-10-21 07:20] LABS: ADD MORPHOLOGY? YES
[2016-10-21] MEDS: METOCLOPRAMIDE INJ 10MG/2ML VIAL (J2765) IV PRN (07:50)
[2016-10-21] MEDS: IPRATROPIUM 0.5MG/ALBUTEROL 2.5MG INH SOL UD 3ML (DUONEB)(J7620) NEB SCH ×2 (08:16→11:24)
[2016-10-21] MEDS: LACTOBACILLUS ACIDOPHILUS CAP (BACID) PO SCH ×3 (08:40→17:37)
[2016-10-21] MEDS: GABAPENTIN 300 MG CAP PO SCH ×3 (08:41→17:37)
[2016-10-21] MEDS: PANTOPRAZOLE 40MG INJ (PROTONIX) (C9113) IV SCH (08:41)
[2016-10-21] MEDS: HEPARIN SOD (PORCINE) 5000 UNITS/ML VIAL SQ SCH (08:41)
[2016-10-21 08:47] LABS: ANISOCYTOSIS 1+; HYPOCHROMASIA 1+; MICROCYTOSIS 2+
[2016-10-21] MEDS: METOCLOPRAMIDE 10 MG TAB PO SCH ×2 (12:25→17:37)
[2016-10-21 14:00] VITALS: BP 130/69
--- NOTE | 2016-10-21 15:59 | IPN ---
DATE: 10/21/2016 Time patient was seen was this morning at 8:45. Patient has been seen and examined at bedside. No acute events overnight. Patient still had some nausea after eating, however, was able to tolerate dinner last night with some ice cream. Patient did ambulate yesterday. Patient stated that she would like to go home again. Otherwise, denies any fever or chills, any chest pain, trouble breathing, abdominal pains, diarrhea, or constipation. Denies any blood in the stool. Denies any problem with urination. Denies any other current new complaints. PHYSICAL EXAMINATION: VITAL SIGNS: Temperature was 99.7, pulse 80, respirations 19, blood pressure 159/86, oxygen saturation 94% on room air. GENERAL: Patient is a pleasant, elderly female who was alert, awake and oriented times three, does not appear to be in distress, laying comfortably in bed with head elevated at 45 degree angle. HEENT: Normocephalic, atraumatic. Extraocular motor intact. Mucosa moist. NECK: Supple. No neck lymphadenopathy. CARDIOVASCULAR: Regular rate and rhythm, S1, S2. No murmur, rubs, or gallops. LUNGS: Clear to auscultation bilaterally. No wheezes, rales, or rhonchi. ABDOMEN: Positive bowel sounds. Soft, mildly tender to palpation around the incision side. Otherwise, no peritoneal signs. No ecchymosis. Incisions were clean, dry, and intact. EXTREMITIES: Lower extremity shows no edema, clubbing, or cyanosis. SKIN: Warm and dry. NEUROLOGIC: Cranial nerves II-XII intact. No focal neurological deficit. LABORATORY DATA: WBC 7.4, hemoglobin 11.7, hematocrit 38.7 with a platelet count of 384 and MCV of 69.6. Sodium 143, potassium 3.9, chloride 107, bicarbonate 27, BUN 6, creatinine 0.68, GFR greater than 60, fasting glucose 109, calcium 8.2, magnesium 2. Total bilirubin 0.5, AST 22, ALT 20, alkaline phosphatase 78. Total protein 6.1, albumin 2.7. No cultures. No new imaging. ASSESSMENT AND PLAN: An 86-year-old female with a past medical history of colon cancer, hypertension, hyperlipidemia, colitis, arthritis, anxiety and depression , osteoporosis, degenerative joint disease, questionable congestive heart failure (CHF), who presented with: 1. Colon cancer status post laparoscopic right colectomy with Dr. Sanchez, postoperative day number nine. Patient's postoperative ileus has resolved. Patient still has some nausea, however, was able to tolerate some ice cream last night. Continue diet and pain management per general surgery. Continue to encourage ambulation and incentive spirometry. 2. Postoperative ileus, appears to have resolved. 3. Shortness of breath, appears to have resolved. EKG showed similar findings compared to before. Patient does not have any chest pain. Troponin was trended down. 4. Hypokalemia, resolved with IV fluid with K40 half-normal with D5 at a rate of 50 mL per hour. We will discontinue once patient is able to tolerate diet better. 5. Microcytic anemia with mean corpuscular volume (MCV) of 70, likely secondary to iron deficiency. Patient did receive two units of packed red blood cells (PRBC) which contains iron. We will are considering to start patient on oral supplement outpatient due to patient just had a colectomy. 6. Chronic obstructive pulmonary disease (COPD), on DuoNebs. 7. Hyperlipidemia. Continue home medication. 8. Hypertension. Continue home medication. 9. Fibrotic lung changes on chest x-ray. CT was repeated and shows fibrotic changes. No metastasis. 10. Deep vein thrombosis (DVT) prophylaxis, with subcutaneous heparin. DISPOSITION: Patient is improving slowly. Able to tolerate some diet last night, and was able to ambulate last night as well. We will continue to follow general surgery's recommendations. Patient will need iron supplement when she goes home. Patient has been discussed with attending doctor, Dr. Curran. My preceptor for this patient encounter was Dr. Ney Curran. The preceptor was physically present in the building during the encounter and was fully available as needed. All aspects of the patient interview, examination, medical decision making process, and medical care plan development were reviewed and approved by the preceptor. The preceptor is aware and concurs with the plan as stated in the body of this note and will attest to such by his/her co-signature. Attending note: patient seen and examined independently. All aspects of medical treatment discussed with resident and agree with above course of action MTDD
[2016-10-21] MEDS ORDERED: METO10TA2 PO (17:02)
[2016-10-21] MEDS ORDERED: NORCOTAB PO (17:02)
[2016-10-22] MEDS ORDERED: FERR325T16 PO (07:43)
== END 2016-10-21 18:53 | disposition home or self-care (01) | DRG 330 ==
LOC: M OR 08:01 → M MSPAV 17:22
PROVIDERS: ADMIT Surgery; ATTEND Surgery
PROC: 30253N1 (ICD-10-PCS; 2016-10-12)
PROC: 0DTF4ZZ Resection of Right Large Intestine, Percutaneous Endoscopic Approach (ICD-10-PCS; principal; 2016-10-12 10:15)
DX: C18.2 Malignant neoplasm of ascending colon (principal); J98.11 Atelectasis; K56.7 Ileus, unspecified; I10 Essential (primary) hypertension; E78.00 Pure hypercholesterolemia, unspecified; K21.9 Gastro-esophageal reflux disease without esophagitis; J84.10 Pulmonary fibrosis, unspecified; D50.9 Iron deficiency anemia, unspecified; E87.6 Hypokalemia; E66.9 Obesity, unspecified; F41.9 Anxiety disorder, unspecified; F32.9 Major depressive disorder, single episode, unspecified; M19.90 Unspecified osteoarthritis, unspecified site; J44.9 Chronic obstructive pulmonary disease, unspecified; Z79.82 Long term (current) use of aspirin; Z79.891 Long term (current) use of opiate analgesic; Z79.899 Other long term (current) drug therapy; Z68.29 Body mass index [BMI] 29.0-29.9, adult

== ENCOUNTER → 2016-11-03 | Outpatient (CLI) | payer MEDICARE, OTHER ==
[~2016-11-03] MED LIST changes: +FERR325T16 PO; +METO10TA2 PO; +NORCOTAB PO
== END ==
LOC: M LAB 15:48
PROVIDERS: ATTEND Surgery
DX: D64.9 Anemia, unspecified (principal); C18.2 Malignant neoplasm of ascending colon

== ENCOUNTER 2017-03-15 21:27 | Inpatient (IN) | payer MEDICARE, OTHER ==
[~2017-03-15] VITALS: Ht 167.6 cm; Wt 95.0 kg
[~2017-03-15 21:27] MED LIST changes: -CALC600T10 PO; +CALC600T31 PO; -PROA1AER INH; +PROAAER10 INH
[2017-03-15] MEDS ORDERED: PROT1TAB2 PO (21:37)
[2017-03-15] MEDS ORDERED: ONDANSETRON 4MG/2ML VIAL (J2405) IV ONE (22:00)
[2017-03-15 22:47] LABS: BASO % 0.1 % (0.0-1.0); EOS % 0.3 % (0.0-3.0); LARGE UNSTAINED CELL # 0.3 K/mm3 (0.0-0.4); LARGE UNSTAINED CELL % 3.2 % (0.0-4.0); LYMPH # 1.8 K/mm3 (1.5-4.5); LYMPH % 18.4 % (24.0-44.0); MEAN CORPUSCULAR HEMOGLOBIN 26.2 pg (27.0-33.0); MEAN CORPUSCULAR HGB CONC 32.5 g/dl (32.0-36.5); MEAN CORPUSCULAR VOLUME 80.8 fl (80.0-96.0); MONO # 0.7 K/mm3 (0.0-0.8); MONO % 8.5 % (0.0-5.0); NEUTROPHILS # 5.7 K/mm3 (1.8-7.7); NEUTROPHILS % 69.4 % (36.0-66.0); PLATELET COUNT, AUTOMATED 224 k/mm3 (150-450); RED CELL DISTRIBUTION WIDTH 15.3 % (11.5-14.5); WHITE BLOOD COUNT 8.2 K/mm3 (4.0-10.0)
[2017-03-15 23:10] LABS: ALBUMIN 3.3 GM/DL (3.2-5.2); ALBUMIN/GLOBULIN RATIO 1.03 (1.00-1.93); ALKALINE PHOSPHATASE 72 U/L (45-117); ALT/SGPT 15 U/L (12-78); ANION GAP 8 MEQ/L (8-16); AST/SGOT 16 U/L (15-37); BILIRUBIN,DIRECT 0.2 MG/DL (0.0-0.2); BILIRUBIN,TOTAL 0.8 MG/DL (0.2-1.0); BLOOD UREA NITROGEN 19 MG/DL (7-18); CALCIUM LEVEL 8.5 MG/DL (8.8-10.2); CARBON DIOXIDE LEVEL 28 MEQ/L (21-32); CHLORIDE LEVEL 102 MEQ/L (98-107); CREATININE FOR GFR 0.92 MG/DL (0.55-1.02); GLOMERULAR FILTRATION RATE > 60.0 (>32); GLUCOSE, FASTING 130 MG/DL (83-110); POTASSIUM SERUM 3.8 MEQ/L (3.5-5.1); SODIUM LEVEL 138 MEQ/L (136-145); TOTAL PROTEIN 6.5 GM/DL (6.4-8.2)
[2017-03-15] MEDS ORDERED: GASTROGRAFIN SOLUTION 30ML (Q9963) PO ONE ×2 (23:45)
[2017-03-16] MEDS ORDERED: ISOVUE-370 76% 100ML VIAL (Q9967) As Ordered ONE (00:30)
--- NOTE | 2017-03-16 02:20 | REPUSA ---
CLINICAL HISTORY: Abdominal pain. TECHNIQUE: Multiple axial, sagittal and coronal CT images were obtained through the abdomen and pelvi s after administration of oral and intravenous contrast material. COMMENTS: Comparison is made to the prior exam on 09/22/2016. Small sliding hiatal hernia. Irregular hepatic contour suggestive of parenchymal liver disease. Small amount of perihepatic free fluid. Uncomplicated colonic diverticulosis. Prior partial bowel resection. Moderate partial small bowel obstruction. Transition zone in the right lower quadrant and the level of the surgical anastomosis. No bowel perforation or pneumatosis intestinalis. Bilateral simple renal cysts. Calcified dense soft tissue lesion at the level of the splenic hilum. Chronic and benign. Interval appearance of small amount of free pelvic fluid. There is no intra or extrahepatic biliary ductal dilatation. The spleen is normal. The gallbladder is distended containing sludge. The pancreas is of normal contour and attenuation characteristics. Ther e is no evidence of adrenal mass. Both kidneys demonstrate prompt and equal nephrograms. The kidneys are normal in size, shape and conf iguration. There is no evidence of renal or ureteral mass. No renal or ureteral calculi are identifie d. There is no hydroureter or hydronephrosis. No evidence for appendicitis. There is no evidence of abdominal ascites or lymphadenopathy. There is no evidence of intrinsic or extrinsic bladder mass. There is no pelvic ascites or lymphadeno emmanuel. Images of the lung bases show no evidence of pleural or parenchymal mass. There are no pleural effusi ons. The bony structures are free of lytic or blastic lesions. Multilevel degenerative changes are seen in volving the thoracolumbar spine. Scattered calcifications are seen involving the aorta and major bran ches compatible with atherosclerosis. IMPRESSION: Distended gallbladder containing sludge. Moderate partial small bowel obstruction. Transition zone in the right lower quadrant. No bowel perforation or pneumatosis intestinalis. Thank you for your kind referral of this patient.
[2017-03-16] MEDS ORDERED: ONDANSETRON 4MG/2ML VIAL (J2405) IV ONE (02:30)
[2017-03-16] MEDS ORDERED: LEVALBUTEROL 1.25 MG/0.5 ML CONCENTRATE NEB NEB PRN (03:00)
[2017-03-16] MEDS ORDERED: DEXTROSE 50% 50 ML SYRINGE IV PRN (03:00)
[2017-03-16] MEDS ORDERED: GLUCAGON FOR INJ 1 MG VIAL (J1610) SC PRN (03:00)
[2017-03-16] MEDS ORDERED: GLUCOSE 4 GM CHEW TABLET PO PRN (03:00)
[2017-03-16] MEDS ORDERED: KCL 20MEQ IN D5/0.45NS 1000ML 1,000 ML IV SCH (03:15)
[2017-03-16] MEDS ORDERED: BACITAB PO (03:21)
[2017-03-16] MEDS ORDERED: CALC1TAB PO (03:21)
[2017-03-16] MEDS ORDERED: ASPI81TAEC PO (03:21)
[2017-03-16] MEDS ORDERED: VITA100066 PO (03:21)
[2017-03-16] MEDS ORDERED: POTA10CA PO (03:21)
[2017-03-16] MEDS ORDERED: SIMV20TA2 PO (03:21)
[2017-03-16] MEDS ORDERED: VITACHTA PO (03:21)
[2017-03-16] MEDS: LR 1,000 ML IV SCH ×3 (03:30→13:12)
[2017-03-16 05:10] VITALS: BP 142/78
--- NOTE | 2017-03-16 07:03 | CR ---
DATE OF CONSULTATION: 03/16/2017 ATTENDING PHYSICIAN: Dr. Rakan Jade. REFERRING PHYSICIAN: Dr. George Sanchez. REASON FOR CONSULT: Medical management. CHIEF COMPLAINT: Abdominal pain. HISTORY OF PRESENT ILLNESS: 87-year-old female with history of colon adenocarcinoma high grade status post right hemicolectomy 10/14/[address] Sanchez presents to the emergency room with increasing abdominal pain for the past 4 days described as sharp, bilateral lower quadrant/epigastric area on and off lasting for several hours with no relief accompanied with 3-4 episodes of nausea and vomiting at home and diarrhea. No fever or chills. Patient has had decrease in appetite but no weight loss without abdominal distention. She presents to the emergency room for further evaluation. CT abdomen and pelvis shows moderate partial small bowel obstruction. Hospitalist service was consulted for medical management. Patient is refusing nasogastric tube. She otherwise denies any weight gain, weight loss, fever, chills, chest pain, pressure, tightness, shortness of breath, palpitations, dysuria, urgency, frequency, bilateral upper or lower extremity weakness, numbness sensation. No headaches, changes in vision, rhinorrhea. PAST MEDICAL HISTORY: Adenocarcinoma of the colon status post right hemicolectomy. Hypertension. Reflux. Colitis. Osteoarthritis. Anxiety/depression. Chronic obstructive pulmonary disease (COPD). Osteoporosis. Degenerative joint disease. Chronic right bundle branch block. Left anterior vesicular block. Last echocardiogram was 2011. Left ventricle ejection fraction 65-70%. PAST SURGICAL HISTORY: Right hemicolectomy in October 2016 secondary to colon cancer. Right total knee replacement. ALLERGIES: CEFEPIME causing hives. HOME MEDICATIONS: - albuterol as needed - aspirin 81 daily - vitamin D 3000 units daily - Aleve 640 daily - gabapentin 600 mg four times daily - lactobacillus one tablet daily - multivitamin one tablet daily - Protonix 40 mg daily - potassium chloride 10 mEq daily - simvastatin 20 mg daily at bedtime - tramadol one to two tablets every 4 hours - calcium with vitamin D one tablet three times daily SOCIAL HISTORY Quit smoking 10 years ago. Used to smoke half a pack a day for over 5 years. Denies alcohol or recreational drug use. Retired and . FAMILY HISTORY: Congestive heart failure (CHF). Coronary artery disease (CAD). Cerebrovascular disease (CVA). Lung cancer. Breast cancer. Cirrhosis. REVIEW OF SYSTEMS: Twelve point system negative aside from positive findings on history and physical. PHYSICAL EXAMINATION: Temperature 97.2, pulse 86, respiratory rate 18, blood pressure 156/97, 91% on room air. Generally, patient is awake, alert, oriented to person, place and time, answering questions appropriately. No respiratory distress. No use of respiratory accessory muscles. Speaks in full sentences. Anicteric sclera. Pupils equally round and reactive to light and accommodation. Extraocular muscles are intact. Normocephalic, atraumatic. No jugular venous distention. No thyromegaly or cervical lymphadenopathy. Lungs: Clear to auscultation. No wheezing, rales or rhonchi. Heart: S1, S2. Sinus rhythm. Abdomen: Soft, slightly tender epigastric region, bilateral lower quadrants. No rebound or guarding. Hypoactive bowel sounds. Skin: Warm, dry, well perfused. No pitting edema. LAB DATA: White count 8.2, hemoglobin 13, hematocrit 42, platelet count 224. Sodium 138, potassium 3.8, chloride 102, bicarbonate 28, BUN 19, creatinine 0.92 , glucose 130. Urine culture is pending. Urinalysis 1+ protein, trace ketones, negative nitrate, negative leukocyte esterase, 1 WBC, negative bacteria. CT abdomen and pelvis: Small sliding hiatal hernia, parenchymal liver disease, small amount of perihepatic free fluid, uncomplicated colonic diverticulosis, prior partial bowel obstruction, moderate partial small bowel obstruction, transition zone in the right lower quadrant at the level of the surgical anastomosis. No polyp, perforation or pneumatosis intestinalis. Bilateral simple renal cysts. No evidence of intrinsic and extrinsic bladder mass. No pelvic ascites. No pleural effusions. Distended gallbladder containing sludge. ASSESSMENT AND PLAN: This is an 87-year-old female with history of adenocarcinoma of the colon status post right hemicolectomy 10/[address] Sanchez, hypertension, reflux, hiatal hernia, colitis, arthritis, anxiety/depression, chronic obstructive pulmonary disease (COPD), osteoporosis. Echo [address] Vega, ejection fraction of 65-70%, presents to the emergency room with 4 day history of increasing abdominal pain without abdominal distention, nausea and vomiting and diarrhea. Patient was found to have a moderate partial small bowel obstruction, admitted to surgical service, Dr. George Sanchez. Medical service consulted for medical management. Patient will be seen by Dr. Rakan Jade, hospitalist data migration consultant during the hospital stay. CURRENT ISSUES: 1. Partial small bowel obstruction. Medical management per primary team, n.p.o. status, IV fluids, monitor for electrolyte abnormalities and supplement as needed, antiemetics with IV Zofran. Patient is currently refusing nasogastric tube placement. When agreeable, keep nasogastric tube to low intermittent suction. 2. Abnormal EKG with history of chronic right bundle branch block, left anterior fascicular block, no acute shortness of breath, chest pain. 3. History of colon cancer, adenocarcinoma status post right hemicolectomy, currently with partial small bowel obstruction most likely secondary to adhesions. 4. Hypertension uncontrolled secondary to pain. Morphine as needed for pain. Monitor blood pressure. Since patient is n.p.o., if blood pressure remains elevated above 150 systolic or diastolic greater than 90, may consider topical nitroglycerine or intravenous medications if patient does not respond. 5. History of chronic obstructive pulmonary disease (COPD), as needed nebulizers, no active wheezing. Not home oxygen dependent. 6. Reflux, in PPI, continue IV Protonix. 7. Anxiety/depression, chronic. Hold oral medications while n.p.o. 8. History of degenerative joint disease and osteoporosis, hold vitamin D calcium supplement until patient has resumed an oral diet. 9. Deep venous thrombosis (DVT) prophylaxis, compression stockings. Patient will be seen by Dr. Rakan Jade, hospitalist data migration consultant, for the entire admission for medical issues. NORBERT
[2017-03-16 07:10] LABS: BASO % 0.2 % (0.0-1.0); EOS % 0.4 % (0.0-3.0); LARGE UNSTAINED CELL # 0.2 K/mm3 (0.0-0.4); LARGE UNSTAINED CELL % 3.4 % (0.0-4.0); LYMPH # 1.9 K/mm3 (1.5-4.5); LYMPH % 28.7 % (24.0-44.0); MEAN CORPUSCULAR HEMOGLOBIN 26.4 pg (27.0-33.0); MEAN CORPUSCULAR HGB CONC 32.4 g/dl (32.0-36.5); MEAN CORPUSCULAR VOLUME 81.7 fl (80.0-96.0); MONO # 0.6 K/mm3 (0.0-0.8); MONO % 9.1 % (0.0-5.0); NEUTROPHILS # 3.5 K/mm3 (1.8-7.7); NEUTROPHILS % 58.2 % (36.0-66.0); PLATELET COUNT, AUTOMATED 234 k/mm3 (150-450); RED CELL DISTRIBUTION WIDTH 15.3 % (11.5-14.5)
[2017-03-16 07:18] LABS: ANION GAP 9 MEQ/L (8-16); BLOOD UREA NITROGEN 18 MG/DL (7-18); CARBON DIOXIDE LEVEL 30 MEQ/L (21-32); CHLORIDE LEVEL 100 MEQ/L (98-107); CREATININE FOR GFR 0.91 MG/DL (0.55-1.02); GLOMERULAR FILTRATION RATE > 60.0 (>32); GLUCOSE, FASTING 117 MG/DL (83-110); MAGNESIUM LEVEL 2.6 MG/DL (1.8-2.4); POTASSIUM SERUM 3.6 MEQ/L (3.5-5.1); SODIUM LEVEL 139 MEQ/L (136-145)
[2017-03-16] MEDS: ONDANSETRON 4MG/2ML VIAL (J2405) IV PRN ×3 (07:22→15:55)
[2017-03-16] MEDS: CIPROFLOXACIN 400 MG in APPROPRIATE DILUENT 1 EA IV SCH ×2 (09:29→23:19)
[2017-03-16] MEDS: PANTOPRAZOLE 40MG INJ (PROTONIX) (C9113) IV SCH (09:29)
[2017-03-16] MEDS: metroNIDAZOLE 500 MG in APPROPRIATE DILUENT 1 EA IV SCH ×2 (11:15→19:46)
[2017-03-16] MEDS: MORPHINE 2 MG/ML 1ML SYRINGE IV PRN ×3 (11:51→16:34)
--- NOTE | 2017-03-16 12:01 | REP ---
ABDOMEN, FLAT AND UPRIGHT PA CHEST, THREE VIEWS: HISTORY: Small bowel obstruction. COMPARISON: CT 03/16/2017 Air is present in small and large intestine. There are several dilated loops of intestine. Several air fluid levels are present. There is no pneumoperitoneum. A 3.8 mm calcification is present in the left upper quadrant. Contrast material is present in the urinary bladder and renal collecting systems. Surgical clips are present in the abdomen. The lungs are clear. IMPRESSION: Findings consistent with ileus or small bowel obstruction that are unchanged compared to the previous study. A repeat examination may be helpful for further evaluation. Signed by Evaristo Shook MD 03/16/2017 12:03 P
[2017-03-16 14:00] VITALS: BP_SYST 145; BP_SYST 191; BP_DIAS 82; BP_DIAS 96
[2017-03-16] MEDS ORDERED: KETOROLAC 30 MG/ML VIAL (J1885) IV PRN (18:15)
[2017-03-16] MEDS: PROMETHAZINE INJ 25 MG/ML VIAL (J2550) IV PRN (18:35)
[2017-03-16 22:00] VITALS: BP 152/84
[2017-03-17] MEDS: PROMETHAZINE INJ 25 MG/ML VIAL (J2550) IV PRN ×2 (01:32→11:35)
[2017-03-17] MEDS: metroNIDAZOLE 500 MG in APPROPRIATE DILUENT 1 EA IV SCH ×3 (03:28→18:16)
[2017-03-17] MEDS: ONDANSETRON 4MG/2ML VIAL (J2405) IV PRN ×3 (04:22→19:58)
[2017-03-17 06:00] VITALS: BP 172/90
[2017-03-17 06:48] LABS: BASO % 0.2 % (0.0-1.0); EOS % 0.1 % (0.0-3.0); LARGE UNSTAINED CELL # 0.2 K/mm3 (0.0-0.4); LARGE UNSTAINED CELL % 2.5 % (0.0-4.0); LYMPH # 1.1 K/mm3 (1.5-4.5); MEAN CORPUSCULAR HGB CONC 33.1 g/dl (32.0-36.5); MEAN CORPUSCULAR VOLUME 81.5 fl (80.0-96.0); MONO # 0.5 K/mm3 (0.0-0.8); NEUTROPHILS # 4.9 K/mm3 (1.8-7.7); NEUTROPHILS % 75.2 % (36.0-66.0); PLATELET COUNT, AUTOMATED 211 k/mm3 (150-450); RED CELL DISTRIBUTION WIDTH 15.3 % (11.5-14.5); WHITE BLOOD COUNT 6.5 K/mm3 (4.0-10.0)
[2017-03-17 07:02] LABS: ANION GAP 10 MEQ/L (8-16); BLOOD UREA NITROGEN 13 MG/DL (7-18); CALCIUM LEVEL 8.4 MG/DL (8.8-10.2); CARBON DIOXIDE LEVEL 27 MEQ/L (21-32); CHLORIDE LEVEL 103 MEQ/L (98-107); CREATININE FOR GFR 0.74 MG/DL (0.55-1.02); GLOMERULAR FILTRATION RATE > 60.0 (>32); GLUCOSE, FASTING 115 MG/DL (83-110); POTASSIUM SERUM 3.1 MEQ/L (3.5-5.1); SODIUM LEVEL 140 MEQ/L (136-145)
[2017-03-17] MEDS: PANTOPRAZOLE 40MG INJ (PROTONIX) (C9113) IV SCH (08:48)
[2017-03-17] MEDS: KCL 10MEQ IN 100ML SWI (KRUN) 10 MEQ in APPROPRIATE DILUENT 1 EA IV SCH ×8 (08:48→15:37)
[2017-03-17] MEDS: LR 1,000 ML IV SCH ×2 (08:49→18:17)
--- NOTE | 2017-03-17 09:51 | HPE ---
DATE OF ADMISSION: 03/16/2017 PRINCIPAL DIAGNOSIS: Abdominal pain, question small bowel obstruction. 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 Patient had this about 3 months ago. Since that time, she has had some intermittent irritable bowel type complaints. She has always had some nausea, even before her operation. She has had multiple episodes of Clostridium (C.) difficile, and she has had this ongoing for some time. Over the last several days, she has had decreased stool output, although she states that she had a small bowel movement yesterday. She still has some mild generalized abdominal distension and presented to the emergency room with a white count of 8.2 this morning at 6:00. She has had no fevers or chills. She has had this mild nausea and occasional vomiting and occasional diarrhea. PAST MEDICAL HISTORY: Significant for history of colon cancer (right colectomy), hypertension, reflux, history of C difficile colitis (multiple episodes), history of osteoarthritis, history of anxiety and depression, history of chronic obstructive pulmonary disease, history of osteoporosis, history of degenerative joint disease, history of chronic right bundle branch block, history of left anterior fascicular block, history of total knee replacement (right). MEDICATIONS: Include: albuterol, aspirin, vitamin D, Aleve, gabapentin, lactobacillus, multivitamin, Protonix, potassium, simvastatin, tramadol. PHYSICAL EXAMINATION: Reveals an elderly female who looks stated age. HEENT is unremarkable. NECK: Supple without adenopathy. LUNGS: Clear anteriorly although diminished posteriorly. HEART: Regular with multiple irregular beats. ABDOMEN: Softly distended. No significant peritoneal signs. No guarding. No rebound. She mostly feels that she describes uncomfortable with palpation and mostly a pressure sensation. IMPRESSION AND PLAN: The patient has evidence of abdominal distension, nausea, vomiting, diarrhea that is been intermittent. It is hard to know if she has another episode of C difficile, though she is not having the classic diarrheal symptoms. What I am seeing on her imaging however is that she has some thickening of the small bowel and some dilated small bowel, could be secondary to enteritis, although this was not remarked about on her CT scan. I do feel that it is reasonable to have her on some antibiotics at this time for treatment of presumptive infectious enteritis versus possible C difficile, thus I will treat her with Saundra Aleman and we will see how she does over the ensuing 12-24 hours. I also will obtain a followup x-ray to see if there is air in the colon. If there is air in the colon and there seems to be less of an obstructive pattern and more of an ileus, this would be much more suggestive of an infectious etiology versus a small bowel obstruction. We will get some followup laboratories and x-rays as necessary, depending on her progress.
--- NOTE | 2017-03-17 11:16 | REP ---
ABDOMEN AND FLAT UPRIGHT PA CHEST, THREE VIEWS: HISTORY: Small bowel obstruction. COMPARISON: 03/16/2017 A small amount of air is present in the small and large intestine. There are severe minimally dilated loops of small intestine. The loops of small intestine are decreased in size compared to the previous study. Several air fluid levels are present that are decreased compared to the previous study. There is no pneumoperitoneum. An NG tube is present. Surgical clips are present in the abdomen. The lungs are clear. IMPRESSION: There are several dilated loops of small intestine that are decreased in size compared to the previous study. The above findings are consistent with ileus or small bowel obstruction that are decreased compared to the previous study. Signed by Evaristo Shook MD 03/17/2017 11:22 A
[2017-03-17] MEDS: CIPROFLOXACIN 400 MG in APPROPRIATE DILUENT 1 EA IV SCH ×2 (11:35→21:52)
[2017-03-17 13:00] VITALS: BP 172/119
[2017-03-17 13:10] VITALS: BP 170/90
[2017-03-17 14:00] VITALS: BP 161/88
--- NOTE | 2017-03-17 14:42 | IPNPDOC ---
Text Note Date of Service The patient was seen on 03/17/17. NOTE Subjective: Agreed to have NG, which was placed yesterday. Nausea. No vomiting. 3 small BM. Objective: Vitals: (see below) General: No acute distress, laying comfortably in bed. HEENT: Moist mucous membranes. NG tube in place. Neck: No JVD or lymphadenopathy Cardiac: RRR, No murmurs Pulm: Clear to auscultation b/l. No wheezing, rhonchi Abd: NT/ND + BS Ext: No edema or cyanosis Labs (see below) Assessment/Plan 1. SBO with h/o Colon ca s/p colectomy- pain management per surgery. NG tube in place. Zofran/PPI. On IVF. Cipro/flagyl 2. Microcytic anemia - 2/2 MARIO. Ferrous sulfate 3. COPD - on nebs 4. HTN - uncontrolled. Start amlodipine 5. HLD on statin 6. 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 Hypokalemia - replaced. DVT prophy: enoxaparin VS,Fishbone, I+O VS, Fishbone, I+O Laboratory Tests 03/17/17 06:19 Red Blood Count 4.88, Mean Corpuscular Volume 81.5, Mean Corpuscular Hemoglobin 27.0, Mean Corpuscular Hemoglobin Concent 33.1, Red Cell Distribution Width 15.3 H, Neutrophils (%) (Auto) 75.2 H, Lymphocytes (%) (Auto) 15.0 L, Monocytes (%) (Auto) 7.0 H, Eosinophils (%) (Auto) 0.1, Basophils (%) (Auto) 0.2, Neutrophils # (Auto) 4.9, Lymphocytes # (Auto) 1.1 L, Monocytes # (Auto) 0.5, Eosinophils # (Auto) 0.0, Basophils # (Auto) 0.0, Calcium Level 8.4 L Vital Signs Date Time Temp Pulse Resp B/P (MAP) Pulse Ox O2 Delivery O2 Flow Rate FiO2 03/17/17 13:10 170/90 (116) 03/17/17 13:00 80 03/17/17 06:00 98.3 18 93 Room Air I&O- Last 24 Hours up to 6 AM 03/17/17 05:59 Intake Total 600 ml Output Total 2200 ml Balance -[address] MD Mar 17, 2017 14:42
[2017-03-17] MEDS ORDERED: amLODIPine 5 MG TAB PO ONE (14:45)
[2017-03-17] MEDS: ENOXAPARIN 40 MG/0.4 ML SYRINGE (J1650) SC SCH (18:17)
[2017-03-17 22:00] VITALS: BP 179/81
[2017-03-18] MEDS: metroNIDAZOLE 500 MG in APPROPRIATE DILUENT 1 EA IV SCH ×3 (04:21→18:32)
[2017-03-18] MEDS: LR 1,000 ML IV SCH ×2 (05:30→16:07)
[2017-03-18 06:00] VITALS: BP 176/81
[2017-03-18 07:12] LABS: BASO % 0.1 % (0.0-1.0); EOS % 0.3 % (0.0-3.0); LARGE UNSTAINED CELL # 0.2 K/mm3 (0.0-0.4); LARGE UNSTAINED CELL % 2.4 % (0.0-4.0); LYMPH # 1.8 K/mm3 (1.5-4.5); LYMPH % 18.4 % (24.0-44.0); MEAN CORPUSCULAR HEMOGLOBIN 26.8 pg (27.0-33.0); MEAN CORPUSCULAR HGB CONC 33.4 g/dl (32.0-36.5); MEAN CORPUSCULAR VOLUME 80.3 fl (80.0-96.0); MONO # 0.7 K/mm3 (0.0-0.8); MONO % 8.3 % (0.0-5.0); NEUTROPHILS % 70.5 % (36.0-66.0); PLATELET COUNT, AUTOMATED 237 k/mm3 (150-450); RED CELL DISTRIBUTION WIDTH 15.1 % (11.5-14.5); WHITE BLOOD COUNT 8.4 K/mm3 (4.0-10.0)
[2017-03-18 07:17] LABS: ANION GAP 13 MEQ/L (8-16); BLOOD UREA NITROGEN 8 MG/DL (7-18); CALCIUM LEVEL 8.6 MG/DL (8.8-10.2); CARBON DIOXIDE LEVEL 25 MEQ/L (21-32); CHLORIDE LEVEL 96 MEQ/L (98-107); CREATININE FOR GFR 0.57 MG/DL (0.55-1.02); GLOMERULAR FILTRATION RATE > 60.0 (>32); GLUCOSE, FASTING 102 MG/DL (83-110); POTASSIUM SERUM 3.1 MEQ/L (3.5-5.1); SODIUM LEVEL 134 MEQ/L (136-145)
[2017-03-18] MEDS ORDERED: amLODIPine 5 MG TAB PO SCH (09:00)
[2017-03-18] MEDS: GABAPENTIN 300 MG CAP PO SCH ×3 (09:32→16:07)
[2017-03-18] MEDS: PANTOPRAZOLE 40MG INJ (PROTONIX) (C9113) IV SCH (09:32)
[2017-03-18] MEDS: MULTIVITAMINS CHILDREN'S CHEWABLE TABLET PO SCH (09:33)
[2017-03-18] MEDS: LACTOBACILLUS ACIDOPHILUS CAP (BACID) PO SCH (09:33)
[2017-03-18] MEDS: ONDANSETRON 4MG/2ML VIAL (J2405) IV PRN ×3 (09:33→18:32)
[2017-03-18] MEDS: VITAMIN D 1,000 INTERNATIONAL UNITS TABLET PO SCH (09:33)
[2017-03-18 09:34] VITALS: BP 176/81
[2017-03-18] MEDS: amLODIPine 5 MG TAB PO SCH (09:34)
[2017-03-18] MEDS: CIPROFLOXACIN 400 MG in APPROPRIATE DILUENT 1 EA IV SCH ×2 (09:34→22:20)
[2017-03-18] MEDS: POTASSIUM CHLORIDE 10 MEQ SR TABLET PO SCH ×2 (11:33→16:07)
[2017-03-18] MEDS: MOM 30ML SUSPENSION UDC PO SCH (15:21)
--- NOTE | 2017-03-18 16:38 | IPNPDOC ---
Text Note Date of Service The patient was seen on 03/18/17. NOTE Subjective: NG was removed. Nausea resolved. No vomiting. 3 small BM yesterday. Objective: Vitals: (see below) General: No acute distress, laying comfortably in bed. HEENT: Moist mucous membranes. Neck: No JVD or lymphadenopathy Cardiac: RRR, No murmurs Pulm: Clear to auscultation b/l. No wheezing, rhonchi Abd: NT/ND + BS Ext: No edema or cyanosis Labs (see below) Assessment/Plan 1. SBO with h/o Colon ca s/p colectomy- pain management per surgery. NG tube removed. Zofran/PPI. On IVF. Cipro/flagyl. Diet advanced. 2. Microcytic anemia - 2/2 MARIO. Ferrous sulfate 3. COPD - on nebs 4. HTN - uncontrolled. amlodipine increased to 10mg 5. HLD on statin 6. 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 Hypokalemia - replaced. DVT prophy: enoxaparin VS,Fishbone, I+O VS, Fishbone, I+O Laboratory Tests 03/18/17 06:13 Red Blood Count 5.07, Mean Corpuscular Volume 80.3, Mean Corpuscular Hemoglobin 26.8 L, Mean Corpuscular Hemoglobin Concent 33.4, Red Cell Distribution Width 15.1 H, Neutrophils (%) (Auto) 70.5 H, Lymphocytes (%) (Auto) 18.4 L, Monocytes (%) (Auto) 8.3 H, Eosinophils (%) (Auto) 0.3, Basophils (%) (Auto) 0.1, Neutrophils # (Auto) 6.0, Lymphocytes # (Auto) 1.8, Monocytes # (Auto) 0.7, Eosinophils # (Auto) 0.0, Basophils # (Auto) 0.0, Calcium Level 8.6 L Vital Signs Date Time Temp Pulse Resp B/P (MAP) Pulse Ox O2 Delivery O2 Flow Rate FiO2 03/18/17 09:34 62 176/81 03/18/17 06:00 96.6 16 95 Room Air I&O- Last 24 Hours up to 6 AM 03/18/17 06:00 Intake Total 1500 ml Output Total 1450 ml Balance [address] MD Mar 18, 2017 16:38
[2017-03-18] MEDS: ENOXAPARIN 40 MG/0.4 ML SYRINGE (J1650) SC SCH (18:06)
[2017-03-18] MEDS ORDERED: METOCLOPRAMIDE INJ 10MG/2ML VIAL (J2765) IV ONE (21:00)
[2017-03-18] MEDS ORDERED: ASPIRIN 81 MG ENTERIC TAB PO SCH (21:00)
[2017-03-18 22:00] VITALS: BP 163/84
[2017-03-19] MEDS: POTASSIUM CHLORIDE 10 MEQ SR TABLET PO SCH ×2 (01:28→11:03)
[2017-03-19] MEDS: LR 1,000 ML IV SCH ×2 (01:28→11:04)
[2017-03-19] MEDS: GABAPENTIN 300 MG CAP PO SCH ×3 (01:28→13:22)
[2017-03-19] MEDS: metroNIDAZOLE 500 MG in APPROPRIATE DILUENT 1 EA IV SCH ×2 (04:44→12:10)
[2017-03-19 06:00] VITALS: BP 133/70
[2017-03-19 06:32] LABS: BASO % 0.3 % (0.0-1.0); EOS % 0.5 % (0.0-3.0); LARGE UNSTAINED CELL % 3.4 % (0.0-4.0); LYMPH % 22.2 % (24.0-44.0); MEAN CORPUSCULAR HEMOGLOBIN 27.2 pg (27.0-33.0); MEAN CORPUSCULAR HGB CONC 33.9 g/dl (32.0-36.5); MEAN CORPUSCULAR VOLUME 80.3 fl (80.0-96.0); MONO # 0.8 K/mm3 (0.0-0.8); NEUTROPHILS # 5.1 K/mm3 (1.8-7.7); NEUTROPHILS % 63.6 % (36.0-66.0); PLATELET COUNT, AUTOMATED 263 k/mm3 (150-450); RED CELL DISTRIBUTION WIDTH 15.2 % (11.5-14.5)
[2017-03-19 06:33] LABS: LARGE UNSTAINED CELL # 0.3 K/mm3 (0.0-0.4)
[2017-03-19 06:59] LABS: ANION GAP 11 MEQ/L (8-16); BLOOD UREA NITROGEN 12 MG/DL (7-18); CALCIUM LEVEL 8.8 MG/DL (8.8-10.2); CARBON DIOXIDE LEVEL 27 MEQ/L (21-32); CHLORIDE LEVEL 97 MEQ/L (98-107); CREATININE FOR GFR 0.81 MG/DL (0.55-1.02); GLOMERULAR FILTRATION RATE > 60.0 (>32); GLUCOSE, FASTING 95 MG/DL (83-110); POTASSIUM SERUM 3.1 MEQ/L (3.5-5.1); SODIUM LEVEL 135 MEQ/L (136-145)
[2017-03-19 08:00] VITALS: BP 122/65
[2017-03-19] MEDS ORDERED: POTASSIUM CHLORIDE 10 MEQ SR TABLET PO ONE (08:15)
[2017-03-19] MEDS: ONDANSETRON 4MG/2ML VIAL (J2405) IV PRN (08:28)
[2017-03-19] MEDS: MULTIVITAMINS CHILDREN'S CHEWABLE TABLET PO SCH (11:01)
[2017-03-19] MEDS: LACTOBACILLUS ACIDOPHILUS CAP (BACID) PO SCH (11:01)
[2017-03-19] MEDS: VITAMIN D 1,000 INTERNATIONAL UNITS TABLET PO SCH (11:02)
[2017-03-19] MEDS: amLODIPine 5 MG TAB PO SCH (11:04)
[2017-03-19] MEDS: CIPROFLOXACIN 400 MG in APPROPRIATE DILUENT 1 EA IV SCH (11:04)
[2017-03-19] MEDS: MOM 30ML SUSPENSION UDC PO SCH (11:05)
[2017-03-19] MEDS ORDERED: AMLO5TAB2 PO (11:23)
[2017-03-19] MEDS ORDERED: ZOFR20TA PO (11:23)
[2017-03-19] MEDS: PANTOPRAZOLE 40MG INJ (PROTONIX) (C9113) IV SCH (11:24)
--- NOTE | 2017-03-19 11:25 | IPNPDOC ---
Text Note Date of Service The patient was seen on 03/19/17. NOTE Subjective: Nausea improved. Tolerating bread. Very particular about what she likes to eat. No abd pain. +flatus. Objective: Vitals: (see below) General: No acute distress, laying comfortably in bed. HEENT: Moist mucous membranes. Neck: No JVD or lymphadenopathy Cardiac: RRR, No murmurs Pulm: Clear to auscultation b/l. No wheezing, rhonchi Abd: NT/ND + BS Ext: No edema or cyanosis Labs (see below) Assessment/Plan 1. SBO with h/o Colon ca s/p colectomy- pain management per surgery. NG tube removed. Zofran/PPI. On IVF. Cipro/flagyl. Diet advanced. 2. Microcytic anemia - 2/2 MARIO. Ferrous sulfate 3. COPD - on nebs 4. HTN - controlled. amlodipine 10mg 5. HLD on statin 6. 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 Hypokalemia - replaced. DVT prophy: enoxaparin Lasix held for now. Euvolemic off lasix. May need it in the near future if starts to retain fluid. VS,Fishbone, I+O VS, Fishbone, I+O Laboratory Tests 03/19/17 05:50 Red Blood Count 5.21, Mean Corpuscular Volume 80.3, Mean Corpuscular Hemoglobin 27.2, Mean Corpuscular Hemoglobin Concent 33.9, Red Cell Distribution Width 15.2 H, Neutrophils (%) (Auto) 63.6, Lymphocytes (%) (Auto) 22.2 L, Monocytes (% ) (Auto) 10.0 H, Eosinophils (%) (Auto) 0.5, Basophils (%) (Auto) 0.3, Neutrophils # (Auto) 5.1, Lymphocytes # (Auto) 2.0, Monocytes # (Auto) 0.8, Eosinophils # (Auto) 0.0, Basophils # (Auto) 0.0, Calcium Level 8.8 Vital Signs Date Time Temp Pulse Resp B/P (MAP) Pulse Ox O2 Delivery O2 Flow Rate FiO2 03/19/17 08:00 97.9 82 122/ 03/19/17 08:00 20 03/19/17 06:00 95 Room Air I&O- Last 24 Hours up to 6 AM 03/19/17 05:59 Intake Total 3288 ml Output Total 2700 ml Balance [address] MD Mar 19, 2017 11:25
[2017-03-19] MEDS ORDERED: METOCLOPRAMIDE INJ 10MG/2ML VIAL (J2765) IV PRN (11:45)
[2017-03-19] MEDS ORDERED: METOCLOPRAMIDE INJ 10MG/2ML VIAL (J2765) As Ordered ONE (11:45)
--- NOTE | 2017-04-12 06:20 | DSES ---
DATE OF ADMISSION: 03/16/2017 DATE OF DISCHARGE: 03/19/2017 PRINCIPAL DIAGNOSIS: Small-bowel obstruction. ASSOCIATED DIAGNOSES: 1. History of right colectomy for adenocarcinoma/colon cancer. 2. History of Clostridium difficile. 3. History of osteoarthritis. 4. History of depression. 5. History of chronic obstructive pulmonary disease. 6. History of osteoporosis. 7. History of degenerative joint disease. 8. History of chronic right bundle branch block. 9. History of knee replacement. HOSPITAL COURSE SUMMARY: The patient was admitted with the diagnosis of small bowel obstruction after being admitted to the emergency room with nausea, vomiting and some mild diarrhea. A CT scan which was performed revealed some thickening of the small bowel and some dilated small bowel. They were concerned that this may be a small bowel obstruction, although from my standpoint I did not rule out infectious etiology. The patient had an NG tube placed and NG tube output significantly dropped off. She started having bowel movements on the first hospital day and thus her NG tube was removed. She was started on a clear liquid diet and advanced to a regular diet. Eventually she was discharged home on 03/19/2017, although it was a slow progression of her diet. She had some mild nausea prior to the day of discharge and she had some mild distention and had great deal of flatus and bowel movement and was not feeling obstructed, just was still having some intermittent nausea. Eventually, she was discharged home on her usual medications which include the following. Amlodipine, Zofran ,ProAir inhaler, aspirin, calcium, vitamin D, Lasix, gabapentin, Probiotics, multivitamins, Protonix, potassium, simvastatin, and tramadol. She was to follow up in my office in 2 weeks or sooner if she is having any concerns, questions, abdominal pain, discomfort, bloating, or evidence of recurrence of her symptoms.
== END 2017-03-19 13:40 | disposition home or self-care (01) | DRG 392 ==
LOC: M ED 21:27 → M ED INP 03-16 02:45 → M MS5PR 03-16 04:50
PROVIDERS: ADMIT Surgery; ATTEND Surgery
DX: A09 Infectious gastroenteritis and colitis, unspecified (principal); I45.2 Bifascicular block; F32.9 Major depressive disorder, single episode, unspecified; J44.9 Chronic obstructive pulmonary disease, unspecified; M81.0 Age-related osteoporosis without current pathological fracture; E87.6 Hypokalemia; K21.9 Gastro-esophageal reflux disease without esophagitis; I10 Essential (primary) hypertension; F41.9 Anxiety disorder, unspecified; Z79.82 Long term (current) use of aspirin; Z79.899 Other long term (current) drug therapy; Z87.891 Personal history of nicotine dependence; Z85.038 Personal history of other malignant neoplasm of large intestine; Z96.651 Presence of right artificial knee joint; Z90.49 Acquired absence of other specified parts of digestive tract

== ENCOUNTER → 2017-12-07 | Outpatient (CLI) | payer MEDICARE, OTHER ==
[2017-12-09 09:02] LABS: CARCINOEMBRYONIC ANTIGEN 1.2 NG/ML (<2.5)
== END ==
LOC: M LAB 14:31
DX: C18.2 Malignant neoplasm of ascending colon (principal)
CPT/HCPCS: 82378

== ENCOUNTER 2018-01-26 09:07 | Day surgery (SDC) | payer MEDICARE, OTHER ==
[2018-01-26] MEDS: NS 1,000 ML IV (09:39)
[2018-01-26] MEDS ORDERED: LIDOCAINE 2% INJ 100 MG/5 ML SDV (FOR ANES.) As Ordered (10:24)
[2018-01-26] MEDS ORDERED: PROPOFOL 200 MG/20 ML VIAL As Ordered ×3 (10:24→10:55)
== END 2018-01-26 11:26 | disposition home or self-care (01) ==
LOC: M OPP 09:07
DX: Z08 Encounter for follow-up examination after completed treatment for malignant neoplasm (principal); Z85.038 Personal history of other malignant neoplasm of large intestine; Z86.010 Personal history of colon polyps; D12.5 Benign neoplasm of sigmoid colon; D12.4 Benign neoplasm of descending colon; D12.3 Benign neoplasm of transverse colon; I10 Essential (primary) hypertension; E78.5 Hyperlipidemia, unspecified; K51.90 Ulcerative colitis, unspecified, without complications; A04.71 Enterocolitis due to Clostridium difficile, recurrent; R12 Heartburn; D64.9 Anemia, unspecified; M19.90 Unspecified osteoarthritis, unspecified site; M54.9 Dorsalgia, unspecified; M81.0 Age-related osteoporosis without current pathological fracture; F41.9 Anxiety disorder, unspecified; F32.9 Major depressive disorder, single episode, unspecified; Z78.0 Asymptomatic menopausal state; J44.9 Chronic obstructive pulmonary disease, unspecified; R06.02 Shortness of breath; K21.9 Gastro-esophageal reflux disease without esophagitis; E66.9 Obesity, unspecified; Z96.651 Presence of right artificial knee joint; Z87.891 Personal history of nicotine dependence; Z88.8 Allergy status to other drugs, medicaments and biological substances; Z88.1 Allergy status to other antibiotic agents; Z79.82 Long term (current) use of aspirin; Z79.899 Other long term (current) drug therapy
CPT/HCPCS: 45385

== ENCOUNTER 2019-03-29 08:54 | Day surgery (SDC) | payer MEDICARE, OTHER ==
[~2019-03-29] VITALS: Ht 167.6 cm; Wt 96.2 kg
[~2019-03-29 08:54] MED LIST changes: +AMLO5TAB6 PO; +ASPI81TAEC PO; +BACITAB PO; +CALC1TAB PO; +D-3-50003 PO; -GABA600T PO; +GABA600T4 PO; +HYDR-3715 PO; +KLOR10TA76 PO; +KLOR20TA42 PO; +MIRA3350 PO; +MM S100C PO; -NORCOTAB PO; +NS 1,000 ML IV SCH; +OTEZ1TAB3; +OYST1TAB PO; -POTA20TA PO; +PROT1TAB2 PO; +SIMV20TA2 PO; +STOO1CAP7 PO; +VITA100066 PO; +VITACHTA PO; +ZOFR4TAB16 PO
[2019-03-29] MEDS ORDERED: ESMOLOL INJ 100MG/10ML VIAL As Ordered ONE (10:23)
[2019-03-29] MEDS ORDERED: LIDOCAINE 2% INJ 100 MG/5 ML SDV (FOR ANES.) As Ordered ONE (10:23)
[2019-03-29] MEDS ORDERED: METOPROLOL 5 MG/5 ML VIAL As Ordered ONE (10:23)
[2019-03-29] MEDS ORDERED: PROPOFOL 200 MG/20 ML VIAL As Ordered ONE (10:23)
[2019-03-29] MEDS ORDERED: hydrALAZINE INJ 20 MG/ML VIAL As Ordered ONE (10:26)
--- NOTE | 2019-03-29 10:55 | ROOR ---
Patient Name: Rupinder Vaca Procedure Date: 03/29/2019 10:17 AM Date of : 1930 Age: 89 Room: [facility] Gender: Female Note Status: Finalized Procedure: Colonoscopy Indications: High risk colon cancer surveillance: Personal history of colonic polyps, High risk colon cancer surveillance: Personal history of colon cancer Providers: George Sanchez Jr, MD Referring MD: Galilea Barnes DO Requesting Provider: Medicines: Propofol per Anesthesia Complications: No immediate complications. Procedure: Pre-Anesthesia Assessment: - Prior to the procedure, a History and Physical was performed, and patient medications and allergies were reviewed. The patient is competent. The risks and benefits of the procedure and the sedation options and risks were discussed with the patient. All questions were answered and informed consent was obtained. Patient identification and proposed procedure were verified by the physician and the nurse in the pre-procedure area and in the procedure room. Mental Status Examination: alert and oriented. Airway Examination: normal oropharyngeal airway and neck mobility. Respiratory Examination: clear to auscultation. CV Examination: normal. ASA Grade Assessment: III - A patient with severe systemic disease. After reviewing the risks and benefits, the patient was deemed in satisfactory condition to undergo the procedure. The anesthesia plan was to use moderate sedation / analgesia (conscious sedation). Immediately prior to administration of medications, the patient was re-assessed for adequacy to receive sedatives. The heart rate, respiratory rate, oxygen saturations, blood pressure, adequacy of pulmonary ventilation, and response to care were monitored throughout the procedure. The physical status of the patient was re-assessed after the procedure. The Colonoscope was introduced through the anus and advanced to the ileocolonic anastomosis. The colonoscopy was performed without difficulty. The patient tolerated the procedure well. The quality of the bowel preparation was adequate. Findings: The rectum, recto-sigmoid colon, descending colon and anastomosis appeared normal. Multiple small and large-mouthed diverticula were found in the sigmoid colon. Three polyps were found in the transverse colon and ascending colon. The polyps were small in size. To prevent bleeding post-intervention, one hemostatic clip was successfully placed. There was no bleeding at the end of the procedure. Impression: - The rectum, recto-sigmoid colon, descending colon and colonic anastomosis are normal. - Diverticulosis in the sigmoid colon. - Three small polyps in the transverse colon and in the ascending colon. Clip was placed. - No specimens collected. Recommendation: - Repeat colonoscopy in 3 - 5 years for surveillance. George Sanchez MD George Sanchez Jr, MD 03/29/2019 10:55:20 AM Electronically signed by George Sanchez Jr, MD Number of Addenda: 0 Note Initiated On: 03/29/2019 10:17 AM Estimated Blood Loss: Estimated blood loss: none.
[2019-03-29 11:25] VITALS: BP 140/70
== END 2019-03-29 11:27 | disposition home or self-care (01) ==
LOC: M OPP 08:54
PROVIDERS: ATTEND Surgery
DX: Z08 Encounter for follow-up examination after completed treatment for malignant neoplasm (principal); Z85.038 Personal history of other malignant neoplasm of large intestine; Z86.010 Personal history of colon polyps; D12.3 Benign neoplasm of transverse colon; D12.2 Benign neoplasm of ascending colon; K57.30 Diverticulosis of large intestine without perforation or abscess without bleeding; J44.9 Chronic obstructive pulmonary disease, unspecified; I10 Essential (primary) hypertension; Z79.891 Long term (current) use of opiate analgesic; Z79.899 Other long term (current) drug therapy; Z88.8 Allergy status to other drugs, medicaments and biological substances

== ENCOUNTER → 2020-07-08 | Outpatient (CLI) | payer SELFPAY ==
[~2020-07-08] MED LIST changes: +AMLO1TAB24 PO; -AMLO5TAB6 PO; -ASPI81TA85 PO; +ASPI81TA86 PO; +CVS250CA2 PO; -NS 1,000 ML IV SCH; -SIMV20TA2 PO; +SIMV20TA22 PO; -SIMV40TA2 PO; +SIMV40TA20 PO; -STOO1CAP7 PO
== END ==
LOC: M LABSMTC 13:25
PROVIDERS: ATTEND Pediatrics
DX: Z20.828 Contact with and (suspected) exposure to other viral communicable diseases (principal)

== ENCOUNTER → 2021-02-12 | Outpatient (REF) | payer MEDICARE, OTHER ==
[~2021-02-12] MED LIST changes: +ASPI-569 PO; -ASPI81TAEC PO; +FERR324T21 PO; -FERR325T16 PO
[2021-02-12 10:06] LABS: CALCIUM LEVEL 8.7 MG/DL (8.8-10.2); CREATININE FOR GFR 1.17 MG/DL (0.55-1.30); GLOMERULAR FILTRATION RATE 46.4 (>32); POTASSIUM SERUM 3.5 MEQ/L (3.5-5.1)
== END ==
PROVIDERS: ATTEND Family Medicine
DX: C18.9 Malignant neoplasm of colon, unspecified (principal); I11.9 Hypertensive heart disease without heart failure; R41.0 Disorientation, unspecified; I45.0 Right fascicular block

== ENCOUNTER → 2021-03-11 | Outpatient (REF) | payer MEDICARE | PROVIDERS: ATTEND Family Medicine | DX: R41.82 Altered mental status, unspecified (principal) ==

== ENCOUNTER → 2021-05-01 | Outpatient (REF) | payer MEDICARE ==
[~2021-05-01] MED LIST changes: -KLOR10TA76 PO; -KLOR20TA42 PO; +POTA-136 PO; +POTA-141 PO
[2021-05-01 18:25] LABS: BLOOD UREA NITROGEN 15 MG/DL (7-18); CALCIUM LEVEL 8.8 MG/DL (8.8-10.2); CARBON DIOXIDE LEVEL 34 MEQ/L (21-32); CHLORIDE LEVEL 102 MEQ/L (98-107); CREATININE FOR GFR 0.83 MG/DL (0.55-1.30); GLOMERULAR FILTRATION RATE > 60.0 (>32); GLUCOSE, FASTING 91 MG/DL (70-100); POTASSIUM SERUM 4.1 MEQ/L (3.5-5.1); SODIUM LEVEL 141 MEQ/L (136-145)
== END ==
LOC: M LAB REF 16:16 → M WUC 16:16
PROVIDERS: ATTEND Family Medicine
DX: M54.9 Dorsalgia, unspecified (principal); J44.9 Chronic obstructive pulmonary disease, unspecified; M54.5 Low back pain; R60.9 Edema, unspecified; I11.9 Hypertensive heart disease without heart failure

== ENCOUNTER → 2021-05-13 | Outpatient (REF) | payer MEDICARE, OTHER ==
[2021-05-13 12:31] LABS: BLOOD UREA NITROGEN 14 MG/DL (7-18); CALCIUM LEVEL 8.8 MG/DL (8.8-10.2); CARBON DIOXIDE LEVEL 28 MEQ/L (21-32); CHLORIDE LEVEL 105 MEQ/L (98-107); CREATININE FOR GFR 0.86 MG/DL (0.55-1.30); GLOMERULAR FILTRATION RATE > 60.0 (>32); GLUCOSE, FASTING 120 MG/DL (70-100); POTASSIUM SERUM 3.7 MEQ/L (3.5-5.1); SODIUM LEVEL 143 MEQ/L (136-145)
== END ==
PROVIDERS: ATTEND Family Medicine
DX: C18.9 Malignant neoplasm of colon, unspecified (principal); I11.9 Hypertensive heart disease without heart failure; R41.0 Disorientation, unspecified

== ENCOUNTER → 2021-06-17 | Outpatient (REF) | payer MEDICARE, OTHER ==
[2021-06-17 11:53] LABS: BLOOD UREA NITROGEN 12 MG/DL (7-18); CALCIUM LEVEL 8.7 MG/DL (8.8-10.2); CARBON DIOXIDE LEVEL 31 MEQ/L (21-32); CHLORIDE LEVEL 104 MEQ/L (98-107); CREATININE FOR GFR 0.86 MG/DL (0.55-1.30); GLOMERULAR FILTRATION RATE > 60.0 (>32); GLUCOSE, FASTING 130 MG/DL (70-100); POTASSIUM SERUM 3.9 MEQ/L (3.5-5.1); SODIUM LEVEL 140 MEQ/L (136-145)
== END ==
PROVIDERS: ATTEND Family Medicine
DX: Z79.899 Other long term (current) drug therapy (principal)

== ENCOUNTER → 2021-07-06 | Outpatient (REF) | payer MEDICARE, OTHER ==
[2021-07-06 11:10] LABS: BASO % 0.4 % (0.0-1.0); EOS # 0.2 10^3/uL (0.0-0.5); EOS % 3.5 % (0.0-3.0); HEMATOCRIT 42.2 % (36.0-47.0); LYMPH % 21.7 % (24.0-44.0); MEAN CORPUSCULAR HEMOGLOBIN 27.5 pg (27.0-33.0); MEAN CORPUSCULAR HGB CONC 30.8 g/dl (32.0-36.5); MEAN CORPUSCULAR VOLUME 89.2 fl (80.0-96.0); MONO # 0.4 10^3/uL (0.0-0.8); MONO % 8.8 % (2.0-8.0); NEUTROPHILS % 65.4 % (36.0-66.0); PLATELET COUNT, AUTOMATED 186 10^3/uL (150-450); RED BLOOD COUNT 4.73 10^6/uL (4.00-5.40); WHITE BLOOD COUNT 4.6 10^3/uL (4.0-10.0)
[2021-07-06 11:40] LABS: BLOOD UREA NITROGEN 13 MG/DL (7-18); CARBON DIOXIDE LEVEL 32 MEQ/L (21-32); CHLORIDE LEVEL 106 MEQ/L (98-107); CREATININE FOR GFR 0.69 MG/DL (0.55-1.30); GLOMERULAR FILTRATION RATE > 60.0 (>32); GLUCOSE, FASTING 137 MG/DL (70-100); SODIUM LEVEL 142 MEQ/L (136-145)
== END ==
PROVIDERS: ATTEND Family Medicine
DX: C20 Malignant neoplasm of rectum (principal); R60.9 Edema, unspecified; I11.9 Hypertensive heart disease without heart failure

== ENCOUNTER → 2021-08-12 | Outpatient (REF) | payer MEDICARE, OTHER ==
[2021-08-12 11:09] LABS: BLOOD UREA NITROGEN 15 MG/DL (7-18); CALCIUM LEVEL 8.8 MG/DL (8.8-10.2); CARBON DIOXIDE LEVEL 33 MEQ/L (21-32); CHLORIDE LEVEL 103 MEQ/L (98-107); GLOMERULAR FILTRATION RATE > 60.0 (>32); GLUCOSE, FASTING 79 MG/DL (70-100); POTASSIUM SERUM 4.2 MEQ/L (3.5-5.1); SODIUM LEVEL 140 MEQ/L (136-145)
== END ==
PROVIDERS: ATTEND Family Medicine
DX: R94.31 Abnormal electrocardiogram [ECG] [EKG] (principal); C18.9 Malignant neoplasm of colon, unspecified; I11.9 Hypertensive heart disease without heart failure; R41.0 Disorientation, unspecified; K21.00 Gastro-esophageal reflux disease with esophagitis, without bleeding; I45.10 Unspecified right bundle-branch block

== ENCOUNTER → 2021-09-09 | Outpatient (REF) | payer MEDICARE, OTHER ==
[2021-09-09 13:08] LABS: BASO % 0.6 % (0.0-1.0); EOS # 0.1 10^3/uL (0.0-0.5); EOS % 2.8 % (0.0-3.0); HEMATOCRIT 45.1 % (36.0-47.0); HEMOGLOBIN 13.7 g/dl (12.0-15.5); LYMPH # 1.2 10^3/uL (1.5-5.0); LYMPH % 26.3 % (24.0-44.0); MEAN CORPUSCULAR HEMOGLOBIN 27.8 pg (27.0-33.0); MEAN CORPUSCULAR HGB CONC 30.4 g/dl (32.0-36.5); MEAN CORPUSCULAR VOLUME 91.7 fl (80.0-96.0); MONO # 0.3 10^3/uL (0.0-0.8); MONO % 6.7 % (2.0-8.0); NEUTROPHILS # 2.9 10^3/uL (1.5-8.5); NEUTROPHILS % 63.4 % (36.0-66.0); PLATELET COUNT, AUTOMATED 178 10^3/uL (150-450); RED BLOOD COUNT 4.92 10^6/uL (4.00-5.40); WHITE BLOOD COUNT 4.6 10^3/uL (4.0-10.0)
[2021-09-09 14:17] LABS: BLOOD UREA NITROGEN 16 MG/DL (7-18); CALCIUM LEVEL 8.4 MG/DL (8.8-10.2); CARBON DIOXIDE LEVEL 32 MEQ/L (21-32); CHLORIDE LEVEL 104 MEQ/L (98-107); CREATININE FOR GFR 0.82 MG/DL (0.55-1.30); GLOMERULAR FILTRATION RATE > 60.0 (>32); GLUCOSE, FASTING 127 MG/DL (70-100); POTASSIUM SERUM 4.1 MEQ/L (3.5-5.1); SODIUM LEVEL 140 MEQ/L (136-145)
== END ==
PROVIDERS: ATTEND Family Medicine
DX: I45.10 Unspecified right bundle-branch block (principal); D64.9 Anemia, unspecified

== ENCOUNTER → 2021-11-11 | Outpatient (REF) | payer MEDICARE, OTHER ==
[2021-11-11 12:23] LABS: BLOOD UREA NITROGEN 13 MG/DL (7-18); CALCIUM LEVEL 8.7 MG/DL (8.8-10.2); CARBON DIOXIDE LEVEL 32 MEQ/L (21-32); CHLORIDE LEVEL 105 MEQ/L (98-107); GLOMERULAR FILTRATION RATE > 60.0 (>32); GLUCOSE, FASTING 75 MG/DL (70-100); POTASSIUM SERUM 3.6 MEQ/L (3.5-5.1); SODIUM LEVEL 141 MEQ/L (136-145)
== END ==
PROVIDERS: ATTEND Family Medicine
DX: R94.31 Abnormal electrocardiogram [ECG] [EKG] (principal); C18.9 Malignant neoplasm of colon, unspecified; I11.9 Hypertensive heart disease without heart failure; R41.0 Disorientation, unspecified; K21.00 Gastro-esophageal reflux disease with esophagitis, without bleeding; I45.10 Unspecified right bundle-branch block; I10 Essential (primary) hypertension